=== PATIENT | female | born 1955 | race Caucasian/White ===

== ENCOUNTER → 2017-09-05 | Outpatient (CLI) | payer BC | END | disposition home or self-care (01) | LOC: SLPLAB 18:38 | DX: G47.33 Obstructive sleep apnea (adult) (pediatric) (principal) | CPT/HCPCS: 95810 ==

== ENCOUNTER → 2017-10-24 | Outpatient (CLI) | payer BC | END | disposition home or self-care (01) | LOC: RT 08:00 | DX: G47.33 Obstructive sleep apnea (adult) (pediatric) (principal) | CPT/HCPCS: G0399 ==

== ENCOUNTER 2018-03-03 22:20 | Emergency (ER) | payer BC ==
[2018-03-03 23:05] LABS: BILIRUBIN,URINE NEGATIVE (NEG); CLARITY,URINE CLEAR; COLOR,URINE YELLOW; GLUCOSE,URINE NEGATIVE (NEG); NITRITE,URINE NEGATIVE (NEG); PROTEIN,URINE NEGATIVE (NEG-TRACE); UROBILINOGEN,URINE 0.2 mg/dL (0.2 mg/dL)
[2018-03-03 23:10] LABS: BACTERIA,URINE 0 /HPF (0-FEW); RBC,URINE 0 /HPF (0-2); SQUAMOUS EPITHELIAL CELL,UR FEW /LPF; WBC,URINE 0 /HPF (0-4)
[2018-03-03 23:17] LABS: ADD MAN DIFF? NO
[2018-03-03 23:21] LABS: BASO # 0.1 x10^3/uL (0.0-0.2); BASO % 1 % (0-3); EOS # 0.5 x10^3/uL (0.0-0.7); EOS % 6 % (0-3); HEMATOCRIT 39.8 % (36.0-47.0); HEMOGLOBIN 13.8 g/dL (12.0-15.5); LYMPH # 2.8 x10^3/uL (1.0-4.8); LYMPH % 35 % (24-48); MEAN CORPUSCULAR HEMOGLOBIN 32 pg (25-35); MEAN CORPUSCULAR HGB CONC 35 g/dL (31-37); MEAN CORPUSCULAR VOLUME 92 fL (79-100); MONO # 0.7 x10^3/uL (0.0-1.1); MONO % 9 % (0-9); NEUT # 3.9 x10^3uL (1.8-7.7); NEUT % 49 % (31-73); PLATELET COUNT 283 x10^3/uL (140-400); RED BLOOD COUNT 4.33 x10^6/uL (3.50-5.40); RED CELL DISTRIBUTION WIDTH 13.7 % (11.5-14.5); WHITE BLOOD COUNT 8.1 x10^3/uL (4.0-11.0)
[2018-03-03 23:27] LABS: ANION GAP 9 (6-14); BLOOD UREA NITROGEN 10 mg/dL (7-20); BUN/CREATININE RATIO 11 (6-20); CALCIUM 9.1 mg/dL (8.5-10.1); CARBON DIOXIDE 25 mmol/L (21-32); CHLORIDE 108 mmol/L (98-107); CREATININE 0.9 mg/dL (0.6-1.0); GLUCOSE 100 mg/dL (70-99); POTASSIUM 3.5 mmol/L (3.5-5.1); SODIUM 142 mmol/L (136-145)
[2018-03-03 23:32] LABS: ALBUMIN 3.7 g/dL (3.4-5.0); ALK PHOS 119 U/L (46-116); ALT (SGPT) 22 U/L (14-59); AST (SGOT) 20 U/L (15-37); MAGNESIUM 2.1 mg/dL (1.8-2.4); TOTAL BILIRUBIN 0.3 mg/dL (0.2-1.0); TOTAL PROTEIN 7.3 g/dL (6.4-8.2)
[2018-03-03 23:45] LABS: THYROID STIM HORMONE (TSH) 0.124 uIU/mL (0.358-3.74)
== END 2018-03-04 00:54 | disposition home or self-care (01) ==
LOC: ER 03-04 00:54
DX: J32.9 Chronic sinusitis, unspecified (principal); R42 Dizziness and giddiness; J44.9 Chronic obstructive pulmonary disease, unspecified; I10 Essential (primary) hypertension; F32.9 Major depressive disorder, single episode, unspecified; F41.9 Anxiety disorder, unspecified; Z88.5 Allergy status to narcotic agent
CPT/HCPCS: 36415; 70450; 80053; 81001; 83735; 84443; 85025; 99285-25

== ENCOUNTER 2018-12-08 12:48 | Emergency (ER) | payer BC ==
[~2018-12-08] VITALS: Ht 157.5 cm; Wt 68.0 kg
[~2018-12-08 12:48] MED LIST: ALPR0.5T6 PO; AMLO10TA8 PO; AMOX500C PO; ATOR20TA58 PO; BUPR300T4 PO; CITA20TA6 PO; HYDR-3164 PO; HYDR12.58 PO; PANT40TA5 PO; PRAM0.255 PO
[2018-12-08 13:37] LABS: BASO # 0.1 x10^3/uL (0.0-0.2); BASO % 1 % (0-3); EOS # 0.4 x10^3/uL (0.0-0.7); EOS % 5 % (0-3); HEMATOCRIT 44.4 % (36.0-47.0); HEMOGLOBIN 14.6 g/dL (12.0-15.5); LYMPH # 2.8 x10^3/uL (1.0-4.8); LYMPH % 31 % (24-48); MEAN CORPUSCULAR HEMOGLOBIN 29 pg (25-35); MEAN CORPUSCULAR HGB CONC 33 g/dL (31-37); MEAN CORPUSCULAR VOLUME 89 fL (79-100); MONO # 0.8 x10^3/uL (0.0-1.1); MONO % 9 % (0-9); NEUT # 4.9 x10^3uL (1.8-7.7); NEUT % 54 % (31-73); PLATELET COUNT 321 x10^3/uL (140-400); RED BLOOD COUNT 4.97 x10^6/uL (3.50-5.40); RED CELL DISTRIBUTION WIDTH 14.1 % (11.5-14.5)
[2018-12-08 13:39] LABS: BILIRUBIN,URINE NEGATIVE (NEG); CLARITY,URINE CLEAR; COLOR,URINE YELLOW; NITRITE,URINE NEGATIVE (NEG); PH,URINE 6.5; PROTEIN,URINE NEGATIVE (NEG-TRACE); UROBILINOGEN,URINE 0.2 mg/dL (0.2 mg/dL)
--- NOTE | 2018-12-08 13:45 | RAD ---
CT brain without contrast. HISTORY: Dizzy for months CT scan of the brain was compared with an old study from February 2018. There is no intracranial hemorrhage or subdural hematoma. Ventricles are normal in size. There is no mass or shift of the midline. An acute CVA is not identified. Sinuses are clear. There is mucosal thickening in the left frontal sinus which is chronic also noted on the old CT. There is no mass or shift of the midline. IMPRESSION: 1. Chronic left frontal sinusitis. 2. No intracranial hemorrhage or mass or other acute finding. Electronically signed by: Tarun Nettles MD (12/08/2018 1:42 PM) [facility]
[2018-12-08 13:47] LABS: CALCIUM 8.4 mg/dL (8.5-10.1); CREATININE 0.8 mg/dL (0.6-1.0); GFR 72.2; POTASSIUM 3.9 mmol/L (3.5-5.1)
[2018-12-08 13:52] LABS: ALBUMIN 3.8 g/dL (3.4-5.0); TOTAL BILIRUBIN 0.5 mg/dL (0.2-1.0); TOTAL PROTEIN 7.8 g/dL (6.4-8.2)
[2018-12-08 13:53] LABS: SQUAMOUS EPITHELIAL CELL,UR MANY /LPF
[2018-12-08 13:54] LABS: BACTERIA,URINE 0 /HPF (0-FEW)
[2018-12-08 14:07] VITALS: BP 138/67
[2018-12-08] MEDS ORDERED: SULF1TAB24 PO (14:08)
--- NOTE | 2018-12-08 14:09 | PHYS DOC ---
Past Medical History Past Medical History: Anxiety, COPD, Depression, Hypertension Past Surgical History: Hysterectomy, Other Additional Past Surgical Histo: Pituitary removal Alcohol Use: Rarely Drug Use: None Adult General Chief Complaint Chief Complaint: DIZZY/LIGHT HEADED HPI HPI Patient is a 63 year old female who presents with dizziness that has been ongoing for several weeks. She felt today like she might pass out. She denies vision changes or headaches. She has an appointment to see her primary care provider on Sunday but felt like she needed to be seen before then. She has not had loss of consciousness and denies any recent injuries. Review of Systems Review of Systems Constitutional: Denies fever or chills [] Eyes: Denies change in visual acuity, redness, or eye pain [] HENT: Denies nasal congestion or sore throat [] Respiratory: Denies cough or shortness of breath [] Cardiovascular: No additional information not addressed in HPI [] GI: Denies abdominal pain, nausea, vomiting, bloody stools or diarrhea [] : Denies dysuria or hematuria [] Musculoskeletal: Denies back pain or joint pain [] Integument: Denies rash or skin lesions [] Neurologic: See history of present illness Endocrine: Denies polyuria or polydipsia [] All other systems were reviewed and found to be within normal limits, except as documented in this note. Allergies Allergies Allergies Coded Allergies Type Severity Reaction Last Updated Verified diphenhydramine Allergy Severe SOB 12/13/17 Yes Physical Exam Physical Exam Constitutional: Well developed, well nourished, no acute distress, non-toxic appearance. [] HENT: Normocephalic, atraumatic, bilateral tympanic membranes normal, oropharynx moist, no oral exudates, nose normal. [] Eyes: PERRLA, EOMI, conjunctiva normal, no discharge. [] Neck: Normal range of motion, no tenderness, supple, no stridor. [] Cardiovascular:Heart rate regular rhythm, no murmur [] Lungs & Thorax: Bilateral breath sounds clear to auscultation [] Abdomen: Bowel sounds normal, soft, no tenderness, no masses, no pulsatile masses. [] Skin: Warm, dry, no erythema, no rash. [] Back: No tenderness, no CVA tenderness. [] Extremities: No tenderness, no cyanosis, no clubbing, ROM intact, no edema. [] Neurologic: Alert and oriented X 3, normal motor function, normal sensory function, no focal deficits noted, cranial nerves II through XII are grossly intact. [] Psychologic: Affect normal, judgement normal, mood normal. [] Current Patient Data Vital Signs Vital Signs Date Time Temp Pulse Resp B/P (MAP) Pulse Ox O2 Delivery O2 Flow Rate FiO2 12/08/18 14:07 90 18 98 12/08/18 12:48 98.3 133/69 (90) Room Air 98.3 Lab Values Laboratory Tests Test 12/08/18 12:56 12/08/18 13:20 Urine Collection Type Unknown Urine Color Yellow Urine Clarity Clear Urine pH 6.5 Urine Specific [place] 1.015 Urine Protein Negative mg/dL (NEG-TRACE) Urine Glucose (UA) Negative mg/dL (NEG) Urine Ketones (Stick) Negative mg/dL (NEG) Urine Blood Negative (NEG) Urine Nitrite Negative (NEG) Urine Bilirubin Negative (NEG) Urine Urobilinogen Dipstick 0.2 mg/dL (0.2 mg/dL) Urine Leukocyte Esterase Trace (NEG) Urine RBC 3-5 /HPF (0-2) Urine WBC 1-4 /HPF (0-4) Urine Squamous Epithelial Cells Many /LPF Urine Transitional Epithelial Cells Few /LPF Urine Bacteria 0 /HPF (0-FEW) Urine Mucus Slight /LPF White Blood Count 9.0 x10^3/uL (4.0-11.0) Red Blood Count 4.97 x10^6/uL (3.50-5.40) Hemoglobin 14.6 g/dL (12.0-15.5) Hematocrit 44.4 % (36.0-47.0) Mean Corpuscular Volume 89 fL (79-100) Mean Corpuscular Hemoglobin 29 pg (25-35) Mean Corpuscular Hemoglobin Concent 33 g/dL (31-37) Red Cell Distribution Width 14.1 % (11.5-14.5) Platelet Count 321 x10^3/uL (140-400) Neutrophils (%) (Auto) 54 % (31-73) Lymphocytes (%) (Auto) 31 % (24-48) Monocytes (%) (Auto) 9 % (0-9) Eosinophils (%) (Auto) 5 % (0-3) H Basophils (%) (Auto) 1 % (0-3) Neutrophils # (Auto) 4.9 x10^3uL (1.8-7.7) Lymphocytes # (Auto) 2.8 x10^3/uL (1.0-4.8) Monocytes # (Auto) 0.8 x10^3/uL (0.0-1.1) Eosinophils # (Auto) 0.4 x10^3/uL (0.0-0.7) Basophils # (Auto) 0.1 x10^3/uL (0.0-0.2) Sodium Level 140 mmol/L (136-145) Potassium Level 3.9 mmol/L (3.5-5.1) Chloride Level 103 mmol/L (98-107) Carbon Dioxide Level 27 mmol/L (21-32) Anion Gap 10 (6-14) Blood Urea Nitrogen 11 mg/dL (7-20) Creatinine 0.8 mg/dL (0.6-1.0) Estimated GFR (Cockcroft-Gault) 72.2 BUN/Creatinine Ratio 14 (6-20) Glucose Level 75 mg/dL (70-99) Calcium Level 8.4 mg/dL (8.5-10.1) L Magnesium Level 2.4 mg/dL (1.8-2.4) Total Bilirubin 0.5 mg/dL (0.2-1.0) Aspartate Amino Transferase (AST) 21 U/L (15-37) Alanine Aminotransferase (ALT) 20 U/L (14-59) Alkaline Phosphatase 136 U/L (46-116) H Total Protein 7.8 g/dL (6.4-8.2) Albumin 3.8 g/dL (3.4-5.0) Albumin/Globulin Ratio 1.0 (1.0-1.7) Laboratory Tests 12/08/18 13:20 Laboratory Tests 12/08/18 13:20 EKG EKG [] Radiology/Procedures Radiology/Procedures []PATIENT: ELBERT PEARLUNT: [id number]#: [id number] : 1955 LOCATION: ER AGE: 63 SEX: F EXAM STATUS: PRE ER ORD. PHYSICIAN: HARRISON CUNHA APRN REASON: dizzy PROCEDURE: CT HEAD WO CONTRAST CT brain without contrast. HISTORY: Dizzy for months CT scan of the brain was compared with an old study from February 2018. There is no intracranial hemorrhage or subdural hematoma. Ventricles are normal in size. There is no mass or shift of the midline. An acute CVA is not identified. Sinuses are clear. There is mucosal thickening in the left frontal sinus which is chronic also noted on the old CT. There is no mass or shift of the midline. IMPRESSION: 1. Chronic left frontal sinusitis. 2. No intracranial hemorrhage or mass or other acute finding. Electronically signed by: Tarun Nettles MD (12/08/2018 1:42 PM) [facility] DICTATED and SIGNED BY: TARUN NETTLES MD DATE: 12/08/18 3519 Course & Med Decision Making Course & Med Decision Making Pertinent Labs and Imaging studies reviewed. (See chart for details) [] Dragon Disclaimer Dragon Disclaimer This electronic medical record was generated, in whole or in part, using a voice recognition dictation system. Departure Departure Impression: Primary Impression: Sinusitis Additional Impression: UTI (urinary tract infection) Disposition: 01 HOME, SELF-CARE Condition: STABLE Referrals: SEBASTIEN BRADY MD (PCP) Patient Instructions: Sinusitis, Urinary Tract Infection Additional Instructions: Take the antibiotic as directed. Increase fluids and rest. Follow-up with your primary care provider for urine recheck in one week. You may use over-the- counter Mucinex to help with your sinus congestion. If worsening return to the emergency department. Scripts Sulfamethoxazole/Trimethoprim (BACTRIM DS TABLET) 1 Each Tablet 1 TAB PO BID for uti, sinusitis, #20 TAB Prov: HARRISON CUNHA APRN 12/08/18 Problem Qualifiers HARRISON CUNHA APRN Dec 08, 2018 14:09
--- NOTE | 2018-12-08 16:01 | EKG ---
[facility] [address] [place] [address] Test Date: 2018-12-08 Test Time: 13:01:06 Pat Name: NATHANIEL PEARL Department: Room: Gender: F [employer]ing: : 1955 Requested By: HARRISON CUNHA Order Number: [id number] Reading MD: Measurements Intervals [place] Rate: 85 P: 122 IN: 126 QRS: 135 QRSD: 76 T: 138 QT: 372 QTc: 448 Interpretive Statements SUPRAVENTRICULAR RHYTHM LEFT ATRIAL ABNORMALITY ABNORMAL RIGHT AXIS DEVIATION QRS(T) CONTOUR ABNORMALITY CONSIDER ANTEROSEPTAL MYOCARDIAL DAMAGE CONSIDER HIGH LATERAL INFARCT ABNORMAL ECG RI6.01 Unconfirmed report No previous ECG available for comparison
== END 2018-12-08 14:29 | disposition home or self-care (01) ==
LOC: ER 12:48
DX: N39.0 Urinary tract infection, site not specified (principal); J32.1 Chronic frontal sinusitis; R42 Dizziness and giddiness; I10 Essential (primary) hypertension; J44.9 Chronic obstructive pulmonary disease, unspecified; Z88.5 Allergy status to narcotic agent
CPT/HCPCS: 36415; 70450; 80053; 81001; 83735; 85025; 87086; 93005; 99285

== ENCOUNTER 2018-12-31 12:08 | Emergency (ER) | payer BC ==
[~2018-12-31] VITALS: Ht 154.9 cm; Wt 72.6 kg
[~2018-12-31 12:08] MED LIST changes: +SULF1TAB24 PO
[2018-12-31 13:29] LABS: BASO # 0.1 x10^3/uL (0.0-0.2); BASO % 1 % (0-3); EOS # 0.4 x10^3/uL (0.0-0.7); EOS % 5 % (0-3); HEMATOCRIT 42.1 % (36.0-47.0); HEMOGLOBIN 14.3 g/dL (12.0-15.5); LYMPH # 2.3 x10^3/uL (1.0-4.8); LYMPH % 29 % (24-48); MEAN CORPUSCULAR HEMOGLOBIN 30 pg (25-35); MEAN CORPUSCULAR HGB CONC 34 g/dL (31-37); MEAN CORPUSCULAR VOLUME 89 fL (79-100); MONO # 0.7 x10^3/uL (0.0-1.1); MONO % 8 % (0-9); NEUT # 4.4 x10^3uL (1.8-7.7); NEUT % 57 % (31-73); PLATELET COUNT 277 x10^3/uL (140-400); RED BLOOD COUNT 4.75 x10^6/uL (3.50-5.40); RED CELL DISTRIBUTION WIDTH 14.3 % (11.5-14.5); WHITE BLOOD COUNT 7.8 x10^3/uL (4.0-11.0)
[2018-12-31 13:30] VITALS: BP 116/76
[2018-12-31 13:30] LABS: CALCIUM 9.2 mg/dL (8.5-10.1); CREATININE 0.9 mg/dL (0.6-1.0); POTASSIUM 3.6 mmol/L (3.5-5.1)
[2018-12-31 13:36] LABS: ALBUMIN 3.8 g/dL (3.4-5.0); ALBUMIN/GLOBULIN RATIO 1.2 (1.0-1.7); MAGNESIUM 2.2 mg/dL (1.8-2.4); TOTAL BILIRUBIN 0.3 mg/dL (0.2-1.0)
--- NOTE | 2018-12-31 13:41 | EKG ---
[facility] [address] [place] [address] Test Date: 2018-12-31 Test Time: 12:15:56 Pat Name: NATHANIEL PEARL Department: Room: Gender: F Laserist: : 1955 Requested By: ARIANNA VASQUEZ Order Number: [id number] Reading MD: Damien Stout MD Measurements Intervals [place] Rate: 73 P: 56 DC: 136 QRS: 47 QRSD: 78 T: 39 QT: 412 QTc: 458 Interpretive Statements SINUS RHYTHM NON-SPECIFIC ST/T CHANGES Electronically Signed On 01-27-2019 8:14:15 CDT by Damien Stout MD
--- NOTE | 2018-12-31 13:47 | RAD ---
EXAM: PA and Lateral Views of the Chest DATE: 12/31/2018 1:03 PM INDICATION: Chest pain COMPARISON: 09/11/2014 FINDINGS: The heart is not enlarged. Mediastinal and hilar contours are normal. No focal parenchymal airspace opacity. No pleural effusion or pneumothorax. IMPRESSION: 1. No radiographic evidence for acute cardiopulmonary process. Electronically signed by: Garfield Bethea MD (12/31/2018 1:44 PM) [id number]
--- NOTE | 2018-12-31 14:20 | PHYS DOC ---
Past Medical History Past Medical History: Anxiety, COPD, Depression, GERD, Hypertension Past Surgical History: Hysterectomy, Other Additional Past Surgical Histo: Pituitary removal Additional Information: 1-2 cigarettes daily Alcohol Use: Occasionally Drug Use: Marijuana Adult General Chief Complaint Chief Complaint: CHEST PAIN [facility] HPI Patient is a 63 year old female who is in by EMS because of chest pain. Patient states she didn't take her psychiatric and blood pressure medication this morning and while shopping at [employer] felt sudden onset of substernal sharp and intravenous pain with radiation to her jaw and face and associated with shortness of breath, palpitation, dizziness and near syncope. Patient complaining of numbness of her face and hands at the same time. Patient denies nausea, her and chills, cough and congestion, neck pain, history of DVT and PE. Patient rated her pain 8/10 and states the pain lasts about 15 minutes and resolve after had 324 mg of aspirin given by EMS. Patient states she had the same pain before with diagnose of anxiety. Patient had history of hypertension and smoking without other cardiac risk factors. Review of Systems Review of Systems Constitutional: Denies fever or chills [] Eyes: Denies change in visual acuity, redness, or eye pain [] HENT: Denies nasal congestion or sore throat [] Respiratory: Denies cough, report shortness of breath [] Cardiovascular: No additional information not addressed in HPI [] GI: Denies abdominal pain, nausea, vomiting, bloody stools or diarrhea [] : Denies dysuria or hematuria [] Musculoskeletal: Denies back pain or joint pain [] Integument: Denies rash or skin lesions [] Neurologic: Denies headache, focal weakness or sensory changes [] Endocrine: Denies polyuria or polydipsia [] All other systems were reviewed and found to be within normal limits, except as documented in this note. Allergies Allergies Allergies Coded Allergies Type Severity Reaction Last Updated Verified diphenhydramine Allergy Severe SOB 12/13/17 Yes Physical Exam Physical Exam Constitutional: Well developed, well nourished, no acute distress, non-toxic appearance. [] HENT: Normocephalic, atraumatic Eyes: PERRLA, EOMI, conjunctiva normal, no discharge. [] Neck: Normal range of motion, no tenderness, supple, no stridor. [] Cardiovascular:Heart rate regular rhythm, no murmur [] Lungs & Thorax: Bilateral breath sounds clear to auscultation [] Abdomen: Bowel sounds normal, soft, no tenderness, no masses, no pulsatile masses. [] Skin: Warm, dry, no erythema, no rash. [] Back: No tenderness, no CVA tenderness. [] Extremities: No tenderness, no cyanosis, no clubbing, ROM intact, no edema. [] Neurologic: Alert and oriented X 3, normal motor function, normal sensory function, no focal deficits noted. [] Psychologic: Affect anxious, judgement normal, mood normal. [] Current Patient Data Vital Signs Vital Signs Date Time Temp Pulse Resp B/P (MAP) Pulse Ox O2 Delivery O2 Flow Rate FiO2 12/31/18 12:22 98.2 80 18 125/79 (94) 99 Room Air 98.2 Lab Values Laboratory Tests Test 12/31/18 12:40 White Blood Count 7.8 x10^3/uL (4.0-11.0) Red Blood Count 4.75 x10^6/uL (3.50-5.40) Hemoglobin 14.3 g/dL (12.0-15.5) Hematocrit 42.1 % (36.0-47.0) Mean Corpuscular Volume 89 fL (79-100) Mean Corpuscular Hemoglobin 30 pg (25-35) Mean Corpuscular Hemoglobin Concent 34 g/dL (31-37) Red Cell Distribution Width 14.3 % (11.5-14.5) Platelet Count 277 x10^3/uL (140-400) Neutrophils (%) (Auto) 57 % (31-73) Lymphocytes (%) (Auto) 29 % (24-48) Monocytes (%) (Auto) 8 % (0-9) Eosinophils (%) (Auto) 5 % (0-3) H Basophils (%) (Auto) 1 % (0-3) Neutrophils # (Auto) 4.4 x10^3uL (1.8-7.7) Lymphocytes # (Auto) 2.3 x10^3/uL (1.0-4.8) Monocytes # (Auto) 0.7 x10^3/uL (0.0-1.1) Eosinophils # (Auto) 0.4 x10^3/uL (0.0-0.7) Basophils # (Auto) 0.1 x10^3/uL (0.0-0.2) Sodium Level 140 mmol/L (136-145) Potassium Level 3.6 mmol/L (3.5-5.1) Chloride Level 104 mmol/L (98-107) Carbon Dioxide Level 26 mmol/L (21-32) Anion Gap 10 (6-14) Blood Urea Nitrogen 9 mg/dL (7-20) Creatinine 0.9 mg/dL (0.6-1.0) Estimated GFR (Cockcroft-Gault) 63.0 BUN/Creatinine Ratio 10 (6-20) Glucose Level 93 mg/dL (70-99) Calcium Level 9.2 mg/dL (8.5-10.1) Magnesium Level 2.2 mg/dL (1.8-2.4) Total Bilirubin 0.3 mg/dL (0.2-1.0) Aspartate Amino Transferase (AST) 21 U/L (15-37) Alanine Aminotransferase (ALT) 25 U/L (14-59) Alkaline Phosphatase 140 U/L (46-116) H Creatine Kinase 55 U/L (26-192) Troponin I Quantitative < 0.017 ng/mL (0.000-0.055) RW-Xel-I-Type Natriuretic Peptide 55 pg/mL (0-124) Total Protein 7.0 g/dL (6.4-8.2) Albumin 3.8 g/dL (3.4-5.0) Albumin/Globulin Ratio 1.2 (1.0-1.7) Lipase 604 U/L (73-393) H Laboratory Tests 12/31/18 12:40 Laboratory Tests 12/31/18 12:40 EKG EKG EKG interpreted by me. EKG at 1250 showed normal sinus rhythm at rate of 73, left atrial abnormality, poor R-wave progress in anteroseptal leads, no acute ST and T-wave abnormalities. Radiology/Procedures Radiology/Procedures [] Course & Med Decision Making Course & Med Decision Making Pertinent Labs and Imaging studies reviewed. (See chart for details) Evaluation of patient in ER showed 63-year-old female patient with history of anxiety brought in by EMS because of chest pain. Patient has chest pain in ER. EKG and labs and chest x-ray was unremarkable. Plan discharge patient home to diagnose of panic attack. Dragon Disclaimer Dragon Disclaimer This electronic medical record was generated, in whole or in part, using a voice recognition dictation system. Departure Departure Impression: Primary Impression: Panic attack Additional Impressions: Non-cardiac chest pain Tobacco abuse Tobacco abuse counseling Disposition: HOME, SELF-CARE (@1417) Condition: IMPROVED Referrals: SEBASTIEN BRADY MD (PCP) Patient Instructions: Anxiety and Panic Attacks, Chest Pain (Nonspecific), Smoking Cessation, Tips For Success Additional Instructions: Continue home medication Follow-up with your primary care physician in 3-5 days Return to ER if not getting better Problem Qualifiers ARIANNA VASQUEZ MD December 31, 2018 14:20
== END 2018-12-31 15:00 | disposition home or self-care (01) ==
LOC: ER 12:08
DX: R07.89 Other chest pain (principal); F41.0 Panic disorder [episodic paroxysmal anxiety]; R55 Syncope and collapse; F17.210 Nicotine dependence, cigarettes, uncomplicated; Z71.6 Tobacco abuse counseling; R06.02 Shortness of breath; R51 Headache; R68.84 Jaw pain; R00.2 Palpitations; I10 Essential (primary) hypertension; J44.9 Chronic obstructive pulmonary disease, unspecified; F31.9 Bipolar disorder, unspecified; K21.9 Gastro-esophageal reflux disease without esophagitis; Z88.5 Allergy status to narcotic agent
CPT/HCPCS: 36415; 71046; 80053; 82550; 83690; 83735; 83880; 84484; 85025; 93005; 99285-25

== ENCOUNTER 2019-07-20 13:54 | Emergency (ER) | payer BC, OTHER ==
[~2019-07-20] VITALS: Ht 154.9 cm; Wt 72.6 kg
[~2019-07-20 13:54] MED LIST changes: -PANT40TA5 PO; +PANT40TA77 PO
[2019-07-20 14:00] VITALS: BP 163/94
[2019-07-20] MEDS ORDERED: FLUORESCEIN OPHTH TEST STRIP. OS ONE (15:00)
[2019-07-20] MEDS ORDERED: TETRACAINE 0.5% OPHTH SOLUTION 4ML BOTTLE. OS ONE (15:00)
[2019-07-20] MEDS ORDERED: ERYT1OIN6 OP (15:16)
--- NOTE | 2019-07-20 15:16 | PHYS DOC ---
Past Medical History Past Medical History: Anxiety, Arthritis, COPD, Depression, GERD, High Ch olesterol, Hypertension (BONNIE MELENDREZ [employer]) Past Surgical History: Hysterectomy, Other Additional Past Surgical Histo: Pituitary removal (BONNIE MELENDREZ APRN) Alcohol Use: Occasionally Drug Use: Marijuana (BONNIE MELENDREZ APRN) Adult General Chief Complaint Chief Complaint: EYE PROBLEMS HPI HPI Patient is a 64 year old female who presents with states awoke 2 days ago with sclera redness and pain and photophobia. And thinks she might have scratched her eye got something in her eye. She denies any discharge from either states tearing. Patient rates her pain a 4 out of 10. (BONNIE MELENDREZ APRN) Review of Systems Review of Systems Eyes: Denies change in visual acuity. + redness, or +eye pain [] All other systems were reviewed and found to be within normal limits, except as documented in this note. (BONNIE MELENDREZ APRN) Current Medications Current Medications Current Medications Medications (Trade) Dose Ordered Sig/Kyle Start Time Stop Time Status Last Admin Dose Admin Fluorescein Sodium (Ful-Lorene) 1 strip 1X ONCE 07/20/19 15:00 07/20/19 15:01 DC 07/20/19 15:00 1 STRIP Tetracaine HCl (Tetracaine) 1 drop 1X ONCE 07/20/19 15:00 07/20/19 15:01 DC 07/20/19 15:00 1 DROP (SEBASTIEN LEY MD) Allergies Allergies Allergies Coded Allergies Type Severity Reaction Last Updated Verified diphenhydramine Allergy Severe SOB 12/13/17 Yes (SEBASTIEN LEY MD) Physical Exam Physical Exam Constitutional: Well developed, well nourished, no acute distress, non-toxic appearance. [] HENT: Normocephalic, atraumatic, bilateral external ears normal, oropharynx moist, no oral exudates, nose normal. [] Eyes: PERRLA, EOMI, conjunctiva red, watering, no discharge. [] Neck: Normal range of motion, no tenderness, supple, no stridor. [] Skin: Warm, dry, no erythema, no rash. [] Neurologic: Alert and oriented X 3, normal motor function, normal sensory function, no focal deficits noted. [] Psychologic: Affect normal, judgement normal, mood normal. [] (BONNIE MELENDREZ APRN) Current Patient Data Vital Signs Vital Signs Date Time Temp Pulse Resp B/P (MAP) Pulse Ox O2 Delivery O2 Flow Rate FiO2 07/20/19 14:00 98.6 98 14 163/94 (117) 98 Room Air 98.6 (SEBASTIEN LEY MD) EKG EKG [] (BONNIE MELENDREZ APRN) Radiology/Procedures Radiology/Procedures [] (BONNIE MELENDREZ APRN) Course & Med Decision Making Course & Med Decision Making Denies visual changes, headache, dizziness. Patient has sclera redness. Patient denies itching thigh. No discharge is seen. No swelling of the eye or the eyelid. Right eye 20/30, left eye 20/50, bilateral 20/25. Eye Exam w/ slit lamp: Visual Acuity: Visual Monge: Intact in all four quadrants bilaterally Lac ducts/glands: No swelling Lids w/ evertion: Normal, no foreign body Conj/[place]: Red, Positive Fluorescein/Whit's, Corneal Abrasion at 5'o clock on iris Anterior Chamber: Clear Tonopen readings: Retina exam: No obvious abnormality [] (BONNIE MELENDREZ APRN) Course & Med Decision Making I spoke with the provider about this patient's care. The patient did NOT have a Whit's sign. (SEBASTIEN LEY MD) Dragon Disclaimer Dragon Disclaimer This electronic medical record was generated, in whole or in part, using a voice recognition dictation system. (BONNIE MELENDREZ APRN) Departure Departure Impression: Primary Impression: Corneal abrasion Disposition: HOME, SELF-CARE Condition: STABLE Referrals: SEBASTIEN BRADY MD (PCP) Patient Instructions: Eye - Corneal Abrasion Additional Instructions: FOLLOW UP WITH EYE DOCTOR SOON POSSIBLE. USE MEDICATION PRESCRIBED. Scripts Erythromycin Base (Erythromycin) 1 Gm Oint...g. 1 GM OP QID for 10 Days, #1 MISC Prov: BONNIE MELENDREZ APRN 07/20/19 Problem Qualifiers Primary Impression: Corneal abrasion Encounter type: initial encounter Laterality: left Qualified Codes: S05.02XA - Injury of conjunctiva and corneal abrasion without foreign body, left eye, initial encounter BONNIE MELENDREZ APRN Jul 20, 2019 15:16 SEBASTIEN LEY MD Jul 22, 2019 14:10
== END 2019-07-20 15:40 | disposition home or self-care (01) ==
LOC: ER 13:54
DX: S05.02XA Injury of conjunctiva and corneal abrasion without foreign body, left eye, initial encounter (principal); M19.90 Unspecified osteoarthritis, unspecified site; J44.9 Chronic obstructive pulmonary disease, unspecified; K21.9 Gastro-esophageal reflux disease without esophagitis; Z88.8 Allergy status to other drugs, medicaments and biological substances; W50.4XXA Accidental scratch by another person, initial encounter; Y93.89 Activity, other specified; Y92.89 Other specified places as the place of occurrence of the external cause; Y99.8 Other external cause status
CPT/HCPCS: 99283

== ENCOUNTER → 2019-12-22 | Outpatient (CLI) | payer BC, OTHER ==
[~2019-12-22] MED LIST changes: -BUPR300T4 PO; +BUPR300T92 PO; +ERYT1OIN6 OP
--- NOTE | 2019-12-22 13:49 | RAD ---
RIGHT LEG VENOUS DOPPLER STUDY: Clinical indications: Right leg swelling and pain. Findings: Duplex sonography (including moralez scale evaluation and color flow and waveform spectral analysis) of the proximal aspect of the greater saphenous vein and proximal aspect of the profunda femoral vein and the entire length of the common femoral and superficial femoral and popliteal veins and the tibioperoneal trunk and the proximal aspect of the posterior tibial and peroneal veins of the right leg was performed. Normal compressibility, augmentation of color Doppler flow after calf compression, and respiratory variation of Doppler flow is seen. Thus, there are no sonographic findings of deep venous thrombosis within these veins. Impression: There are no sonographic findings of deep venous thrombosis within the veins discussed above of the right lower extremity. Electronically signed by: Sung Castaneda MD (12/22/2019 1:46 PM) [id number]
== END | disposition home or self-care (01) ==
LOC: US 12:18
PROVIDERS: ATTEND Physician Assistant Medical
DX: M79.89 Other specified soft tissue disorders (principal); R09.89 Other specified symptoms and signs involving the circulatory and respiratory systems
CPT/HCPCS: 93971

== ENCOUNTER 2020-03-21 09:46 | Emergency (ER) | payer BC ==
[~2020-03-21] VITALS: Ht 154.9 cm; Wt 77.0 kg
--- NOTE | 2020-03-21 10:29 | PHYS DOC ---
Past Medical History Past Medical History: Anxiety, Arthritis, COPD, Depression, GERD, High Ch olesterol, Hypertension Past Surgical History: Hysterectomy, Other Additional Past Surgical Histo: Pituitary removal Smoking Status: Current Every Day Smoker Alcohol Use: Occasionally Drug Use: Marijuana General Adult EDM: Chief Complaint: DIZZY/LIGHT HEADED HPI: HPI: Patient is a 65 year old female who was brought here by EMS from home due to dizziness and lightheaded when she woke up this morning. Patient said the symptom got worse with upright position or head movement. Patient denied headache, no blurred vision, no upper respiratory infection. Patient feels nauseous, but no vomiting. Patient denies any chest pain, no abdominal pain, no trouble breathing, no cough or fever. Patient was on Xanax for anxiety for a long time, about 4 weeks ago her doctor stopped her Xanax and put her on BuSpar. Patient said ever since she had not been the same. Review of Systems: Review of Systems: Constitutional: Denies fever or chills. [] Eyes: Denies change in visual acuity. [] HENT: Denies nasal congestion or sore throat. [] Respiratory: Denies cough or shortness of breath. [] Cardiovascular: Denies chest pain or edema. [] GI: Denies abdominal pain, nausea, vomiting, bloody stools or diarrhea. [] : Denies dysuria. [] Musculoskeletal: Denies back pain or joint pain. [] Integument: Denies rash. [] Neurologic: Positive for dizziness, no headache, no slurred speech. Endocrine: Denies polyuria or polydipsia. [] Lymphatic: Denies swollen glands. [] Psychiatric: Denies depression or anxiety. [] Heart Score: Risk Factors: Risk Factors: DM, Current or recent (<one month) smoker, HTN, HLP, family history of CAD, obesity. Risk Scores: Score 0 - 3: 2.5% MACE over next 6 weeks - Discharge Home Score 4 - 6: 20.3% MACE over next 6 weeks - Admit for Clinical Observation Score 7 - 10: 72.7% MACE over next 6 weeks - Early Invasive Strategies Allergies: Allergies: Allergies Coded Allergies Type Severity Reaction Last Updated Verified diphenhydramine Allergy Severe SOB 12/13/17 Yes Physical Exam: PE: Constitutional: Well developed, well nourished, no acute distress, non-toxic appearance. [] HENT: Normocephalic, atraumatic, bilateral external ears normal, oropharynx moist, no oral exudates, nose normal. [] Eyes: PERRLA, EOMI, conjunctiva normal, no discharge. [] Neck: Normal range of motion, no tenderness, supple, no stridor. [] Cardiovascular:Heart rate regular rhythm, no murmur [] Lungs & Thorax: Bilateral breath sounds clear to auscultation [] Abdomen: Bowel sounds normal, soft, no tenderness, no masses, no pulsatile masses. [] Skin: Warm, dry, no erythema, no rash. [] Back: No tenderness, no CVA tenderness. [] Extremities: No tenderness, no cyanosis, no clubbing, ROM intact, no edema. [] Neurologic: Alert and oriented X 3, normal motor function, normal sensory functi on, no focal deficits noted. [] Psychologic: Affect normal, judgement normal, mood normal. [] Current Patient Data: Vital Signs: Vital Signs Date Time Temp Pulse Resp B/P (MAP) Pulse Ox O2 Delivery O2 Flow Rate FiO2 03/21/20 10:00 98.9 75 16 117/71 (86 98 Room Air 98.9 EKG: EKG: EKG was done at 1025, heart rate of 67 bpm, sinus rhythm, no ST segment elevation. Radiology/Procedures: Radiology/Procedures: [facility] [address] [place] [address] IMAGING REPORT Signed PATIENT: NATHANIEL PEARL ACCOUNT: [id number] : 1955 LOCATION: ER AGE: 65 SEX: F EXAM STATUS: PRE ER ORD. PHYSICIAN: FLETCHER PEOPLES DO REASON: dizziness PROCEDURE: CT HEAD WO CONTRAST EXAM: Head CT without contrast. HISTORY: Dizziness. TECHNIQUE: Computed tomographic images of the head were obtained without contrast. *One or more of the following individualized dose reduction techniques were utilized for this examination: 1. Automated exposure control. 2. Adjustment of the mA and/or kV according to patient size. 3. Use of iterative reconstruction technique. COMPARISON: 12/08/2018. FINDINGS: There is no acute or subacute extra-axial or intraparenchymal hemorrhage. There is no mass effect or midline shift. There is no hydrocephalus. There are areas of decreased attenuation within the cerebral white matter, nonspecific and likely related to chronic small vessel disease. There is paranasal sinus mucosal thickening. The orbits and mastoid air cells are unremarkable. There is no suspicious osseous lesion. IMPRESSION: No acute intracranial findings. Electronically signed by: Krystal Graham MD (03/21/2020 11:01 AM) [id number] DICTATED and SIGNED BY: KRYSTAL GRAHAM MD DATE: 03/21/20 1101 Course & Med Decision Making: Course & Med Decision Making Pertinent Labs and Imaging studies reviewed. (See chart for details) Patient is a 65-year-old female who was evaluated in the ER due to dizziness. Patient is on BuSpar at home. She started having the symptoms ever since she started taking that medication. But the symptoms become more severe this morning. Patient was given meclizine for dizziness, she feels much better. Patient was able to get up and walk without any problem. Patient will be discharged home, she was instructed to see her family doctor to reevaluate her medication Dragon Disclaimer: Dragon Disclaimer: This electronic medical record was generated, in whole or in part, using a voice recognition dictation system. Departure Departure Impression: Primary Impression: Dizziness Disposition: 01 HOME, SELF-CARE Condition: STABLE Referrals: SEBASTIEN BRADY MD (PCP) please follow up with your doctor next week for reevaluation. Patient Instructions: Dizziness Additional Instructions: These follow-up with your family doctor for reevaluation and further evaluation. If you continue to have symptoms please come back to the ER for further evaluation. Scripts Meclizine Hcl (MECLIZINE HCL) 25 Mg Tablet 1 TAB PO TID PRN for dizziness, #30 TAB Prov: FLETCHER PEOPLES DO 03/21/20 Justicifation of Admission Dx: Justifications for Admission: Justification of Admission Dx: N/A FLETCHER PEOPLES DO Mar 21, 2020 10:29
[2020-03-21] MEDS ORDERED: MECLIZINE HCL 12.5 MG TABLET. PO ONE (10:30)
[2020-03-21] MEDS ORDERED: ONDANSETRON PF 4 MG/2 ML VIAL. IVP ONE (10:30)
[2020-03-21 10:37] LABS: BASO # 0.1 x10^3/uL (0.0-0.2); BASO % 1 % (0-3); EOS # 0.2 x10^3/uL (0.0-0.7); EOS % 4 % (0-3); HEMATOCRIT 39.9 % (36.0-47.0); HEMOGLOBIN 13.7 g/dL (12.0-15.5); LYMPH # 1.6 x10^3/uL (1.0-4.8); LYMPH % 26 % (24-48); MEAN CORPUSCULAR HEMOGLOBIN 31 pg (25-35); MEAN CORPUSCULAR HGB CONC 35 g/dL (31-37); MEAN CORPUSCULAR VOLUME 89 fL (79-100); MONO # 0.6 x10^3/uL (0.0-1.1); MONO % 9 % (0-9); NEUT # 3.7 x10^3/uL (1.8-7.7); NEUT % 61 % (31-73); PLATELET COUNT 267 x10^3/uL (140-400); RED CELL DISTRIBUTION WIDTH 14.7 % (11.5-14.5); WHITE BLOOD COUNT 6.1 x10^3/uL (4.0-11.0)
[2020-03-21 10:46] LABS: CALCIUM 8.7 mg/dL (8.5-10.1); CREATININE 0.9 mg/dL (0.6-1.0); GFR 62.6; POTASSIUM 3.5 mmol/L (3.5-5.1)
[2020-03-21 10:52] LABS: ALBUMIN 3.5 g/dL (3.4-5.0); ALBUMIN/GLOBULIN RATIO 1.1 (1.0-1.7); MAGNESIUM 2.2 mg/dL (1.8-2.4); TOTAL BILIRUBIN 0.6 mg/dL (0.2-1.0); TOTAL PROTEIN 6.8 g/dL (6.4-8.2)
--- NOTE | 2020-03-21 11:04 | RAD ---
EXAM: Head CT without contrast. HISTORY: Dizziness. TECHNIQUE: Computed tomographic images of the head were obtained without contrast. *One or more of the following individualized dose reduction techniques were utilized for this examination: 1. Automated exposure control. 2. Adjustment of the mA and/or kV according to patient size. 3. Use of iterative reconstruction technique. COMPARISON: 12/08/2018. FINDINGS: There is no acute or subacute extra-axial or intraparenchymal hemorrhage. There is no mass effect or midline shift. There is no hydrocephalus. There are areas of decreased attenuation within the cerebral white matter, nonspecific and likely related to chronic small vessel disease. There is paranasal sinus mucosal thickening. The orbits and mastoid air cells are unremarkable. There is no suspicious osseous lesion. IMPRESSION: No acute intracranial findings. Electronically signed by: Krystal Baker MD (03/21/2020 11:01 AM) [id number]
[2020-03-21 12:27] VITALS: BP 110/74
[2020-03-21] MEDS ORDERED: MECL-75 PO (12:47)
--- NOTE | 2020-03-23 03:12 | EKG ---
[facility] [address] [place] [address] Test Date: 2020-03-21 Test Time: 10:35:48 Pat Name: NATHANIEL PEARL Department: Room: Gender: F [employer]: : 1955 Requested By: FLETCHER PEOPLES Order Number: [id number] Reading MD: Measurements Intervals Mcleod Rate: 67 P: 47 NM: 128 QRS: 47 QRSD: 84 T: 16 QT: 416 QTc: 443 Interpretive Statements SINUS RHYTHM T ABNORMALITY IN ANTERIOR LEADS ABNORMAL ECG RI6.01 No previous ECG available for comparison
== END 2020-03-21 13:00 | disposition home or self-care (01) ==
LOC: ER 09:46
DX: R42 Dizziness and giddiness (principal); R11.0 Nausea; J44.9 Chronic obstructive pulmonary disease, unspecified; K21.9 Gastro-esophageal reflux disease without esophagitis; E78.00 Pure hypercholesterolemia, unspecified; I10 Essential (primary) hypertension; F17.200 Nicotine dependence, unspecified, uncomplicated; Z88.5 Allergy status to narcotic agent
CPT/HCPCS: 36415; 70450; 80053; 83735; 84484; 85025; 93005; 96374; 99285; J2405; J8597

== ENCOUNTER 2020-05-02 21:00 | Emergency (ER) | payer BC ==
[~2020-05-02] VITALS: Ht 154.9 cm; Wt 72.7 kg
[~2020-05-02 21:00] MED LIST changes: +MECL-75 PO
[2020-05-02 21:26] LABS: BASO # 0.1 x10^3/uL (0.0-0.2); BASO % 1 % (0-3); EOS # 0.3 x10^3/uL (0.0-0.7); EOS % 3 % (0-3); HEMATOCRIT 39.1 % (36.0-47.0); HEMOGLOBIN 13.5 g/dL (12.0-15.5); LYMPH # 2.7 x10^3/uL (1.0-4.8); LYMPH % 25 % (24-48); MEAN CORPUSCULAR HEMOGLOBIN 30 pg (25-35); MEAN CORPUSCULAR HGB CONC 34 g/dL (31-37); MEAN CORPUSCULAR VOLUME 88 fL (79-100); MONO # 1.1 x10^3/uL (0.0-1.1); MONO % 10 % (0-9); NEUT # 6.7 x10^3/uL (1.8-7.7); NEUT % 62 % (31-73); PLATELET COUNT 268 x10^3/uL (140-400); RED BLOOD COUNT 4.44 x10^6/uL (3.50-5.40); WHITE BLOOD COUNT 10.9 x10^3/uL (4.0-11.0)
[2020-05-02 21:32] LABS: CALCIUM 9.1 mg/dL (8.5-10.1); CREATININE 0.9 mg/dL (0.6-1.0); GFR 62.6; POTASSIUM 3.1 mmol/L (3.5-5.1)
[2020-05-02 21:38] LABS: ALBUMIN 3.3 g/dL (3.4-5.0); TOTAL BILIRUBIN 0.2 mg/dL (0.2-1.0); TOTAL PROTEIN 6.6 g/dL (6.4-8.2)
--- NOTE | 2020-05-02 21:44 | PHYS DOC ---
Past Medical History Past Medical History: Anxiety, Arthritis, COPD, Depression, GERD, High Cholesterol, Hypertension Past Surgical History: Hysterectomy, Other Additional Past Surgical Histo: Pituitary removal Smoking Status: Current Every Day Smoker Alcohol Use: None Drug Use: Marijuana General Adult EDM: Chief Complaint: FLANK PAIN HPI: HPI: Patient is a 65 year old female presents with a chief complaint of right lower quadrant abdominal pain. Patient states she has had pain for approximately 6 months on and off. Pain is become more frequent over the last month. Patient states tonight around 1800 hrs. pain returned and would not resolve. Patient states pain was a 6 out of 10 after hydrocodone. Patient states she has associated nausea but has not vomited. Patient denies any urinary symptoms. Despite pain ongoing for 6 months patient has not seen her primary care physician for evaluation. Patient has a past surgical history of total hysterectomy. She denies any urinary or vaginal symptoms. Review of Systems: Review of Systems: Constitutional: Denies fever or chills. [] Eyes: Denies change in visual acuity. [] HENT: Denies nasal congestion or sore throat. [] Respiratory: Denies cough or shortness of breath. [] Cardiovascular: Denies chest pain or edema. [] GI: Positive abdominal pain positive nausea no vomiting no diarrhea : Denies dysuria. [] Musculoskeletal: Denies back pain or joint pain. [] Integument: Denies rash. [] Neurologic: Denies headache, focal weakness or sensory changes. [] Endocrine: Denies polyuria or polydipsia. [] Lymphatic: Denies swollen glands. [] Psychiatric: Denies depression or anxiety. [] Heart Score: Risk Factors: Risk Factors: DM, Current or recent (<one month) smoker, HTN, HLP, family history of CAD, obesity. Risk Scores: Score 0 - 3: 2.5% MACE over next 6 weeks - Discharge Home Score 4 - 6: 20.3% MACE over next 6 weeks - Admit for Clinical Observation Score 7 - 10: 72.7% MACE over next 6 weeks - Early Invasive Strategies Allergies: Allergies: Allergies Coded Allergies Type Severity Reaction Last Updated Verified diphenhydramine Allergy Severe SOB 12/13/17 Yes Physical Exam: PE: Constitutional: Well developed, well nourished, no acute distress, non-toxic appearance. [] HENT: Normocephalic, atraumatic, bilateral external ears normal, oropharynx moist, no oral exudates, nose normal. [] Eyes: PERRLA, EOMI, conjunctiva normal, no discharge. [] Neck: Normal range of motion, no tenderness, supple, no stridor. [] Cardiovascular:Heart rate regular rhythm, no murmur [] Lungs & Thorax: Bilateral breath sounds clear to auscultation [] Abdomen: Domingo pain right lower quadrant tenderness to palpation no rebound no guarding Skin: Warm, dry, no erythema, no rash. [] Back: No tenderness, no CVA tenderness. [] Extremities: No tenderness, no cyanosis, no clubbing, ROM intact, no edema. [] Neurologic: Alert and oriented X 3, normal motor function, normal sensory function, no focal deficits noted. [] Psychologic: Affect normal, judgement normal, mood normal. [] Current Patient Data: Labs: Laboratory Tests Test 05/02/20 21:12 White Blood Count 10.9 x10^3/uL (4.0-11.0) Red Blood Count 4.44 x10^6/uL (3.50-5.40) Hemoglobin 13.5 g/dL (12.0-15.5) Hematocrit 39.1 % (36.0-47.0) Mean Corpuscular Volume 88 fL (79-100) Mean Corpuscular Hemoglobin 30 pg (25-35) Mean Corpuscular Hemoglobin Concent 34 g/dL (31-37) Red Cell Distribution Width 14.0 % (11.5-14.5) Platelet Count 268 x10^3/uL (140-400) Neutrophils (%) (Auto) 62 % (31-73) Lymphocytes (%) (Auto) 25 % (24-48) Monocytes (%) (Auto) 10 % (0-9) H Eosinophils (%) (Auto) 3 % (0-3) Basophils (%) (Auto) 1 % (0-3) Neutrophils # (Auto) 6.7 x10^3/uL (1.8-7.7) Lymphocytes # (Auto) 2.7 x10^3/uL (1.0-4.8) Monocytes # (Auto) 1.1 x10^3/uL (0.0-1.1) Eosinophils # (Auto) 0.3 x10^3/uL (0.0-0.7) Basophils # (Auto) 0.1 x10^3/uL (0.0-0.2) Sodium Level 139 mmol/L (136-145) Potassium Level 3.1 mmol/L (3.5-5.1) L Chloride Level 103 mmol/L (98-107) Carbon Dioxide Level 24 mmol/L (21-32) Anion Gap 12 (6-14) Blood Urea Nitrogen 13 mg/dL (7-20) Creatinine 0.9 mg/dL (0.6-1.0) Estimated GFR (Cockcroft-Gault) 62.6 BUN/Creatinine Ratio 14 (6-20) Glucose Level 122 mg/dL (70-99) H Calcium Level 9.1 mg/dL (8.5-10.1) Total Bilirubin 0.2 mg/dL (0.2-1.0) Aspartate Amino Transferase (AST) 19 U/L (15-37) Alanine Aminotransferase (ALT) 25 U/L (14-59) Alkaline Phosphatase 134 U/L (46-116) H Total Protein 6.6 g/dL (6.4-8.2) Albumin 3.3 g/dL (3.4-5.0) L Albumin/Globulin Ratio 1.0 (1.0-1.7) Laboratory Tests 05/02/20 21:12 Laboratory Tests 05/02/20 21:12 Vital Signs: Vital Signs Date Time Temp Pulse Resp B/P (MAP) Pulse Ox O2 Delivery O2 Flow Rate FiO2 05/02/20 21:11 98.2 85 18 103/69 (80) 98 Room Air 98.2 EKG: EKG: [] Radiology/Procedures: Radiology/Procedures: [] Impression: CT abdomen and pelvis without contrast 05/02/2020. Reason for exam: Flank pain. Helical noncontrast images were performed. Exposure: One or more of the following individualized dose reduction techniques were utilized for this examination: 1. Automated exposure control 2. Adjustment of the mA and/or kV according to patient size 3. Use of iterative reconstruction technique. FINDINGS: The lung bases are clear. There is a small hiatal hernia. The liver and spleen show no significant parenchymal abnormality. Evaluation of the solid organs is limited without IV contrast. The kidneys show no apparent mass or significant obstruction. Small calcifications are visible in the lower left kidney. The adrenal glands are not enlarged. The pancreas appears normal. No retroperitoneal or mesenteric adenopathy is seen. There is no apparent abdominal mass or inflammatory process. Images through the pelvis show no apparent dilatation of the distal ureters. There are calcifications near both ureteral path, but these are thought most likely phleboliths external to the ureter. No pelvic or inguinal adenopathy is seen. There is no apparent pelvic mass. There is some diverticulosis of the sigmoid colon. There is no clear-cut diverticulitis or other acute abnormality. IMPRESSION: There are left renal calculi. No ureteral stone is seen. Course & Med Decision Making: Course & Med Decision Making Pertinent Labs and Imaging studies reviewed. (See chart for details) []CT without acute abnormalities. UA consistent with UTI. Rx azo and macrobid utlram [place] Disclaimer: Minor Disclaimer: This electronic medical record was generated, in whole or in part, using a voice recognition dictation system. Departure Departure Impression: Primary Impression: Abdominal pain Additional Impression: UTI (urinary tract infection) Disposition: 01 HOME, SELF-CARE Condition: STABLE Referrals: NO PCP (PCP) Patient Instructions: Abdominal Pain, Urinary Tract Infection Scripts Tramadol Hcl (ULTRAM) 50 Mg Tablet 1 TAB PO PRN Q6HRS PRN for pain MDD 4 Tablet(s) for 7 Days, #14 TAB 0 Refills Prov: ZEYAD BECK I DO 05/02/20 Phenazopyridine Hcl (AZO STANDARD) 95 Mg Tablet 1 TAB PO TID for 3 Days, #9 TAB 0 Refills Prov: ZEYAD BCEK I DO 05/02/20 Nitrofurantoin Monohyd/M-Cryst (MACROBID 100 MG CAPSULE) 100 Mg Capsule 1 CAP PO BID for 5 Days, #10 CAP 0 Refills Prov: ZEYAD BECK I DO 05/02/20 Justicifation of Admission Dx: Justifications for Admission: Justification of Admission Dx: N/A ZEYAD BECK I DO May 02, 2020 21:44
[2020-05-02] MEDS ORDERED: KETOROLAC 30 MG/ML VIAL. IVP ONE (22:00)
--- NOTE | 2020-05-02 22:03 | RAD ---
CT abdomen and pelvis without contrast 05/02/2020. Reason for exam: Flank pain. Helical noncontrast images were performed. Exposure: One or more of the following individualized dose reduction techniques were utilized for this examination: 1. Automated exposure control 2. Adjustment of the mA and/or kV according to patient size 3. Use of iterative reconstruction technique. FINDINGS: The lung bases are clear. There is a small hiatal hernia. The liver and spleen show no significant parenchymal abnormality. Evaluation of the solid organs is limited without IV contrast. The kidneys show no apparent mass or significant obstruction. Small calcifications are visible in the lower left kidney. The adrenal glands are not enlarged. The pancreas appears normal. No retroperitoneal or mesenteric adenopathy is seen. There is no apparent abdominal mass or inflammatory process. Images through the pelvis show no apparent dilatation of the distal ureters. There are calcifications near both ureteral path, but these are thought most likely phleboliths external to the ureter. No pelvic or inguinal adenopathy is seen. There is no apparent pelvic mass. There is some diverticulosis of the sigmoid colon. There is no clear-cut diverticulitis or other acute abnormality. IMPRESSION: There are left renal calculi. No ureteral stone is seen. Electronically signed by: Domingo Levi Jr., MD (05/02/2020 10:00 PM) [facility]
[2020-05-02 22:25] LABS: BILIRUBIN,URINE NEGATIVE (NEG); CLARITY,URINE CLEAR; COLOR,URINE YELLOW; NITRITE,URINE NEGATIVE (NEG); PROTEIN,URINE NEGATIVE (NEG-TRACE); UROBILINOGEN,URINE 0.2 mg/dL (0.2 mg/dL)
[2020-05-02 22:31] LABS: SQUAMOUS EPITHELIAL CELL,UR MOD /LPF
[2020-05-02 22:32] LABS: BACTERIA,URINE FEW /HPF (0-FEW); RBC,URINE OCC /HPF (0-2)
[2020-05-02] MEDS ORDERED: TRAM-48 PO (22:39)
[2020-05-02] MEDS ORDERED: PHEN95TA27 PO (22:39)
[2020-05-02] MEDS ORDERED: NITR100C62 PO (22:39)
[2020-05-02 22:45] VITALS: BP 101/67
== END 2020-05-02 22:50 | disposition home or self-care (01) ==
LOC: ER 21:00
DX: N39.0 Urinary tract infection, site not specified (principal); J44.9 Chronic obstructive pulmonary disease, unspecified; K21.9 Gastro-esophageal reflux disease without esophagitis; E78.00 Pure hypercholesterolemia, unspecified; I10 Essential (primary) hypertension; F17.200 Nicotine dependence, unspecified, uncomplicated; Z90.710 Acquired absence of both cervix and uterus; Z88.5 Allergy status to narcotic agent
CPT/HCPCS: 36415; 74176; 80053; 81001; 85025; 87086; 96374; 99284; J1885

== ENCOUNTER 2020-05-09 20:38 | Observation (INO) | payer BC ==
[~2020-05-09] VITALS: Ht 157.5 cm; Wt 77.0 kg
[~2020-05-09 20:38] MED LIST changes: +NITR100C62 PO; +PHEN95TA27 PO; +TRAM-48 PO
[2020-05-09] MEDS ORDERED: IV NORMAL SALINE 1000ML BAG 1,000 ML IV ONE (21:00)
[2020-05-09 21:34] LABS: BASO # 0.1 x10^3/uL (0.0-0.2); BASO % 1 % (0-3); EOS # 0.4 x10^3/uL (0.0-0.7); EOS % 5 % (0-3); HEMATOCRIT 38.6 % (36.0-47.0); HEMOGLOBIN 12.9 g/dL (12.0-15.5); LYMPH # 2.3 x10^3/uL (1.0-4.8); LYMPH % 28 % (24-48); MEAN CORPUSCULAR HEMOGLOBIN 30 pg (25-35); MEAN CORPUSCULAR HGB CONC 33 g/dL (31-37); MEAN CORPUSCULAR VOLUME 90 fL (79-100); MONO # 0.7 x10^3/uL (0.0-1.1); MONO % 9 % (0-9); NEUT # 4.8 x10^3/uL (1.8-7.7); NEUT % 58 % (31-73); PLATELET COUNT 255 x10^3/uL (140-400); RED CELL DISTRIBUTION WIDTH 13.9 % (11.5-14.5); WHITE BLOOD COUNT 8.3 x10^3/uL (4.0-11.0)
[2020-05-09 21:41] LABS: AMPHETAMINE/METHAMPHETAMINE NEG (NEG); BARBITURATES NEG (NEG); BENZODIAZEPINES NEG (NEG); CANNABINOIDS NEG (NEG); COCAINE NEG (NEG); METHADONE NEG (NEG); OPIATES NEG (NEG); PHENCYCLIDINE NEG (NEG)
[2020-05-09 21:43] LABS: PROTHROMBIN TIME PATIENT 12.8 SEC (11.7-14.0)
[2020-05-09 21:45] LABS: CALCIUM 8.8 mg/dL (8.5-10.1); CREATININE 0.9 mg/dL (0.6-1.0); GFR 62.6; POTASSIUM 3.3 mmol/L (3.5-5.1)
[2020-05-09 21:48] LABS: ACETAMIN < 2 mcg/ml (10-30); ETHANOL < 10 mg/dL (0-10); SALIC 4.2 mg/dL (2.8-20.0)
[2020-05-09 21:51] LABS: ALBUMIN 3.2 g/dL (3.4-5.0); MAGNESIUM 2.4 mg/dL (1.8-2.4); TOTAL BILIRUBIN 0.3 mg/dL (0.2-1.0); TOTAL PROTEIN 6.5 g/dL (6.4-8.2)
--- NOTE | 2020-05-09 22:03 | PHYS DOC ---
Past Medical History Past Medical History: Anxiety, Arthritis, COPD, Depression, GERD, High Cholesterol, Hypertension Past Medical History Limited secondary to altered mental status Past Surgical History: Hysterectomy, Other Additional Past Surgical Histo: Pituitary removal Past Surgical History Limited secondary to altered mental status Smoking Status: Current Every Day Smoker Alcohol Use: None Drug Use: Marijuana Social History Limited secondary to altered mental status General Adult EDM: Chief Complaint: SUICDAL IDEATION HPI: HPI: 65 year old female presents via EMS with report of suicide attempt after intentional ingestion of patient's prescribed Risperidal. Reports she took 10- 30 tabs at approximately 1800 this evening. Reports she is unsure of the dosing. Reports she got into an argument with her daughter over not being able to see her granddaughter. History of present illness limited secondary to altered mental status. Review of Systems: Review of Systems: Constitutional: Denies fever or chills GI: Denies abdominal pain or vomiting Neurologic: Denies headache Review of systems limited secondary to altered mental status Heart Score: Risk Factors: Risk Factors: DM, Current or recent (<one month) smoker, HTN, HLP, family history of CAD, obesity. Risk Scores: Score 0 - 3: 2.5% MACE over next 6 weeks - Discharge Home Score 4 - 6: 20.3% MACE over next 6 weeks - Admit for Clinical Observation Score 7 - 10: 72.7% MACE over next 6 weeks - Early Invasive Strategies Current Medications: Current Medications Medications (Trade) Dose Ordered Sig/Kyle Start Time Stop Time Status Last Admin Dose Admin Sodium Chloride 1,000 ml @ 1,000 mls/hr 1X ONCE 05/09/20 21:00 05/09/20 21:59 DC 05/09/20 21:19 1,000 MLS/HR Allergies: Allergies: Allergies Coded Allergies Type Severity Reaction Last Updated Verified diphenhydramine Allergy Severe SOB 12/13/17 Yes Physical Exam: PE: Constitutional: Well developed, well nourished, somnolent HENT: Normocephalic, atraumatic Eyes: PERRL, EOMI, conjunctiva normal, no discharge Neck: Normal range of motion, supple Lungs & Thorax: Equal chest rise and fall, no respiratory distress Abdomen: Soft, no tenderness Skin: Warm, dry, no erythema, no rash Extremities: No tenderness, ROM intact, no edema Neurologic: Alert and oriented to name and year but confused to place, somnolent, no focal deficits noted Psychologic: Obtunded, suicidal ideation, judgement poor Current Patient Data: Labs: Laboratory Tests Test 05/09/20 21:05 05/09/20 21:25 Urine Opiates Screen Neg (NEG) Urine Methadone Screen Neg (NEG) Urine Barbiturates Neg (NEG) Urine Phencyclidine Screen Neg (NEG) Urine Amphetamine/Methamphetamine Neg (NEG) Urine Benzodiazepines Screen Neg (NEG) Urine Cocaine Screen Neg (NEG) Urine Cannabinoids Screen Neg (NEG) Urine Ethyl Alcohol Neg (NEG) White Blood Count 8.3 x10^3/uL (4.0-11.0) Red Blood Count 4.30 x10^6/uL (3.50-5.40) Hemoglobin 12.9 g/dL (12.0-15.5) Hematocrit 38.6 % (36.0-47.0) Mean Corpuscular Volume 90 fL (79-100) Mean Corpuscular Hemoglobin 30 pg (25-35) Mean Corpuscular Hemoglobin Concent 33 g/dL (31-37) Red Cell Distribution Width 13.9 % (11.5-14.5) Platelet Count 255 x10^3/uL (140-400) Neutrophils (%) (Auto) 58 % (31-73) Lymphocytes (%) (Auto) 28 % (24-48) Monocytes (%) (Auto) 9 % (0-9) Eosinophils (%) (Auto) 5 % (0-3) H Basophils (%) (Auto) 1 % (0-3) Neutrophils # (Auto) 4.8 x10^3/uL (1.8-7.7) Lymphocytes # (Auto) 2.3 x10^3/uL (1.0-4.8) Monocytes # (Auto) 0.7 x10^3/uL (0.0-1.1) Eosinophils # (Auto) 0.4 x10^3/uL (0.0-0.7) Basophils # (Auto) 0.1 x10^3/uL (0.0-0.2) Prothrombin Time 12.8 SEC (11.7-14.0) Prothrombin Time INR 1.0 (0.8-1.1) Activated Partial Thromboplast Time 28 SEC (24-38) Sodium Level 142 mmol/L (136-145) Potassium Level 3.3 mmol/L (3.5-5.1) L Chloride Level 107 mmol/L (98-107) Carbon Dioxide Level 26 mmol/L (21-32) Anion Gap 9 (6-14) Blood Urea Nitrogen 8 mg/dL (7-20) Creatinine 0.9 mg/dL (0.6-1.0) Estimated GFR (Cockcroft-Gault) 62.6 BUN/Creatinine Ratio 9 (6-20) Glucose Level 85 mg/dL (70-99) Calcium Level 8.8 mg/dL (8.5-10.1) Magnesium Level 2.4 mg/dL (1.8-2.4) Total Bilirubin 0.3 mg/dL (0.2-1.0) Aspartate Amino Transferase (AST) 20 U/L (15-37) Alanine Aminotransferase (ALT) 21 U/L (14-59) Alkaline Phosphatase 103 U/L (46-116) Troponin I Quantitative < 0.017 ng/mL (0.000-0.055) Total Protein 6.5 g/dL (6.4-8.2) Albumin 3.2 g/dL (3.4-5.0) L Albumin/Globulin Ratio 1.0 (1.0-1.7) Salicylates Level 4.2 mg/dL (2.8-20.0) Salicylate Last Dose Date Salicylate Last Dose Time Acetaminophen Level < 2 mcg/ml (10-30) L Acetaminophen Last Dose Date Acetaminophen Last Dose Time Ethyl Alcohol Level < 10 mg/dL (0-10) Laboratory Tests 05/09/20 21:25 Laboratory Tests 05/09/20 21:25 Vital Signs: Vital Signs Date Time Temp Pulse Resp B/P (MAP) Pulse Ox O2 Delivery O2 Flow Rate FiO2 05/09/20 20:45 98.6 98 18 107/69 (82) 99 Room Air 98.6 EKG: EKG: @2119 NSR at 84bpm, NO ST elevation, QRS 80ms, QT/QTc 382/455ms, t wave inversion V2-V4 Radiology/Procedures: Radiology/Procedures: [] Course & Med Decision Making: Course & Med Decision Making Pertinent Lab studies reviewed. (See chart for details) Patient presents with intentional overdose of Risperidone in attempt to harm herself. Unclear exactly how many pills (reportedly between 10-30 tabs) at approximately 1800. EKG stable. Labs obtained and posted to chart. IVF hydration given. Supportive supplemental O2 also provided. Hypokalemia addressed. Poison control contacted. Risperidone affects can last up to approximately 12 hours and therefore admission may be beneficial. Patient requiring admission for further evaluation and treatment. Discussed with Dr. Cruz (hospitalist) who is in agreement with admit. Consult for PAT placed for AM. Discussed findings and plan with patient, who acknowledges understanding and agreement. Dragon Disclaimer: Dragon Disclaimer: This electronic medical record was generated, in whole or in part, using a voice recognition dictation system. Departure Departure Impression: Primary Impression: Suicide attempt by drug ingestion Qualified Codes: T50.902A - Poisoning by unspecified drugs, medicaments and biological substances, intentional self-harm, initial encounter Additional Impression: Hypokalemia Disposition: ADMITTED INPATIENT Admitting Physician: CAMDEN Owens) Condition: GUARDED Referrals: UNKNOWN PCP NAME (PCP) Justicifation of Admission Dx: Justifications for Admission: Justification of Admission Dx: Yes Comments: Intentional overdose, suicide attempt Critical Care Time Critical care time was 30 minutes which includes time at bedside, spent in discussion of patient's care with specialists and/or family members, with interpretation of laboratory and/or radiological studies and is exclusive of procedures. Critical Care Time Critical care time was [30] minutes exclusive of procedures. LIZ ZAVALA DO May 09, 2020 22:03
[2020-05-09] MEDS ORDERED: POTASSIUM CHLORIDE 20 MEQ TABLET.ER. PO ONE (22:30)
[2020-05-10] MEDS ORDERED: ONDANSETRON PF 4 MG/2 ML VIAL. IV PRN
--- NOTE | 2020-05-10 04:43 | NUR ---
Pt. just arrived from ED via bed w/ a suicide attempt of taking 10-30 Risperidol pills. She is drowsy and orientated and will make most needs known. Denies SI at this time.
[2020-05-10 04:50] VITALS: BP 108/71
[2020-05-10 07:00] VITALS: BP 115/79
--- NOTE | 2020-05-10 08:15 | PDOC1 ---
History and Physical Date of Admission Date of Admission DATE: 05/10/20 TIME: 08:07 Identification/Chief Complaint Chief Complaint Intentional overdose Source Source: Patient History of Present Illness History of Present Illness Patient is a 65-year-old female with past medical history of anxiety and depression who presents to the ER for evaluation after intentional overdose. Patient states she took roughly 30 sleeping pills that start with the letter "Z" yesterday afternoon after getting in an argument with her daughter over not being able to see her granddaughter. She also takes Seroquel and BuSpar for her anxiety and depression. She currently denies any suicidal or homicidal ideation, and denies any history of this in the past. Patient has been attempting to contact her psychiatrist to adjust her medications but has been unable to be in touch with him recently. Past Medical History Pulmonary: COPD, Other Psych: Anxiety, Depression, Other Musculoskeletal: Osteoarthritis Past Surgical History Past Surgical History: No pertinent history Family History Family History: Depression Social History Smoke: No ALCOHOL: none Drugs: None Current Problem List Problem List Problems Medical Problems: (1) Hypokalemia Status: Acute (2) Suicide attempt by drug ingestion Status: Acute Current Medications Current Medications Current Medications Sodium Chloride 1,000 ml @ 1,000 mls/hr 1X ONCE IV Last administered on 05/09/20at 21:19; Start 05/09/20 at 21:00; Stop 05/09/20 at 21:59; Status DC Potassium Chloride (Klor-Con) 40 meq 1X ONCE PO Last administered on 05/09/20at 23:27; Start 05/09/20 at 22:30; Stop 05/09/20 at 22:31; Status DC Ondansetron HCl (Zofran) 4 mg PRN Q8HRS PRN IV NAUSEA/VOMITING 1ST CHOICE; St art 05/10/20 at 00:00; Stop 05/10/20 at 23:59 Active Scripts Active Meclizine Hcl 25 Mg Tablet 1 Tab PO TID PRN Reported Hydrochlorothiazide Tablet (Hydrochlorothiazide) 12.5 Mg Tablet 12.5 Mg PO DAILY Citalopram Hbr (Citalopram Hydrobromide) 20 Mg Tablet 30 Mg PO DAILY Pantoprazole Sodium (Pantoprazole Sodium) 40 Mg Tablet.dr 40 Mg PO DAILY Alprazolam 0.5 Mg Tablet 0.5 Mg PO PRN Q6HRS PRN Bupropion Xl (Bupropion Hcl) 300 Mg Tab.er.24h 300 Mg PO DAILY Atorvastatin Calcium 20 Mg Tablet 20 Mg PO DAILY Amlodipine Besylate 10 Mg Tablet 10 Mg PO DAILY Mirapex (Pramipexole Di-Hcl) 0.25 Mg Tablet 0.5 Mg PO HS Allergies Allergies: Coded Allergies: diphenhydramine (Verified Allergy, Severe, SOB, 12/13/17) ROS Review of System GENERAL: No history of weight change, weakness or fevers. SKIN: No bruising, hair changes or rashes. EYES: No blurred, double or loss of vision. NOSE AND THROAT: No history of nosebleeds, hoarseness or sore throat. HEART: Denies chest pain, denies palpitations. LUNGS: Denies cough, hemoptysis, wheezing or shortness of breath. GASTROINTESTINAL: Denies nausea, vomiting, abdominal pain. GENITOURINARY: Denies dysuria, frequency, urgency, hematuria. NEUROLOGIC: Denies history of numbness, tingling, tremor or weakness. PSYCHIATRIC: Denies SI, denies HI ENDOCRINE: No history of heat or cold intolerance, polyuria or polydipsia. EXTREMITIES: Denies muscle weakness, joint pain, pain on walking or stiffness.02 Physical Exam Physical Exam General: Alert, Oriented X3, Cooperative, No acute distress HEENT: PERRLA, EOMI Lungs: Clear to auscultation, Normal air movement Heart: RRR, no murmurs Cardiovascular: S1, S2 Abdomen: Normal bowel sounds, Soft, No tenderness Extremities: No clubbing, No cyanosis Skin: No rashes, No significant lesion Neuro: Normal speech, Normal tone, Sensation intact Psych/Mental Status: Mental status NL, Mood NL Vitals Vitals Vital Signs Date Time Temp Pulse Resp B/P (MAP) Pulse Ox O2 Delivery O2 Flow Rate FiO2 05/10/20 04:50 98.1 75 18 108/71 (83) 99 Room Air 98.1 05/10/20 03:50 2.0 Labs Labs Laboratory Tests Test 05/09/20 21:05 05/09/20 21:25 Urine Opiates Screen Neg (NEG) Urine Methadone Screen Neg (NEG) Urine Barbiturates Neg (NEG) Urine Phencyclidine Screen Neg (NEG) Urine Amphetamine/Methamphetamine Neg (NEG) Urine Benzodiazepines Screen Neg (NEG) Urine Cocaine Screen Neg (NEG) Urine Cannabinoids Screen Neg (NEG) Urine Ethyl Alcohol Neg (NEG) White Blood Count 8.3 x10^3/uL (4.0-11.0) Red Blood Count 4.30 x10^6/uL (3.50-5.40) Hemoglobin 12.9 g/dL (12.0-15.5) Hematocrit 38.6 % (36.0-47.0) Mean Corpuscular Volume 90 fL (79-100) Mean Corpuscular Hemoglobin 30 pg (25-35) Mean Corpuscular Hemoglobin Concent 33 g/dL (31-37) Red Cell Distribution Width 13.9 % (11.5-14.5) Platelet Count 255 x10^3/uL (140-400) Neutrophils (%) (Auto) 58 % (31-73) Lymphocytes (%) (Auto) 28 % (24-48) Monocytes (%) (Auto) 9 % (0-9) Eosinophils (%) (Auto) 5 % (0-3) Basophils (%) (Auto) 1 % (0-3) Neutrophils # (Auto) 4.8 x10^3/uL (1.8-7.7) Lymphocytes # (Auto) 2.3 x10^3/uL (1.0-4.8) Monocytes # (Auto) 0.7 x10^3/uL (0.0-1.1) Eosinophils # (Auto) 0.4 x10^3/uL (0.0-0.7) Basophils # (Auto) 0.1 x10^3/uL (0.0-0.2) Prothrombin Time 12.8 SEC (11.7-14.0) Prothromb Time International Ratio 1.0 (0.8-1.1) Activated Partial Thromboplast Time 28 SEC (24-38) Sodium Level 142 mmol/L (136-145) Potassium Level 3.3 mmol/L (3.5-5.1) Chloride Level 107 mmol/L (98-107) Carbon Dioxide Level 26 mmol/L (21-32) Anion Gap 9 (6-14) Blood Urea Nitrogen 8 mg/dL (7-20) Creatinine 0.9 mg/dL (0.6-1.0) Estimated GFR (Cockcroft-Gault) 62.6 BUN/Creatinine Ratio 9 (6-20) Glucose Level 85 mg/dL (70-99) Calcium Level 8.8 mg/dL (8.5-10.1) Magnesium Level 2.4 mg/dL (1.8-2.4) Total Bilirubin 0.3 mg/dL (0.2-1.0) Aspartate Amino Transf (AST/SGOT) 20 U/L (15-37) Alanine Aminotransferase (ALT/SGPT) 21 U/L (14-59) Alkaline Phosphatase 103 U/L (46-116) Troponin I Quantitative < 0.017 ng/mL (0.000-0.055) Total Protein 6.5 g/dL (6.4-8.2) Albumin 3.2 g/dL (3.4-5.0) Albumin/Globulin Ratio 1.0 (1.0-1.7) Salicylates Level 4.2 mg/dL (2.8-20.0) Salicylate Last Dose Date Salicylate Last Dose Time Acetaminophen Level < 2 mcg/ml (10-30) Acetaminophen Last Dose Date Acetaminophen Last Dose Time Ethyl Alcohol Level < 10 mg/dL (0-10) Laboratory Tests Test 05/09/20 21:05 05/09/20 21:25 Urine Opiates Screen Neg (NEG) Urine Methadone Screen Neg (NEG) Urine Barbiturates Neg (NEG) Urine Phencyclidine Screen Neg (NEG) Urine Amphetamine/Methamphetamine Neg (NEG) Urine Benzodiazepines Screen Neg (NEG) Urine Cocaine Screen Neg (NEG) Urine Cannabinoids Screen Neg (NEG) Urine Ethyl Alcohol Neg (NEG) White Blood Count 8.3 x10^3/uL (4.0-11.0) Red Blood Count 4.30 x10^6/uL (3.50-5.40) Hemoglobin 12.9 g/dL (12.0-15.5) Hematocrit 38.6 % (36.0-47.0) Mean Corpuscular Volume 90 fL (79-100) Mean Corpuscular Hemoglobin 30 pg (25-35) Mean Corpuscular Hemoglobin Concent 33 g/dL (31-37) Red Cell Distribution Width 13.9 % (11.5-14.5) Platelet Count 255 x10^3/uL (140-400) Neutrophils (%) (Auto) 58 % (31-73) Lymphocytes (%) (Auto) 28 % (24-48) Monocytes (%) (Auto) 9 % (0-9) Eosinophils (%) (Auto) 5 % (0-3) Basophils (%) (Auto) 1 % (0-3) Neutrophils # (Auto) 4.8 x10^3/uL (1.8-7.7) Lymphocytes # (Auto) 2.3 x10^3/uL (1.0-4.8) Monocytes # (Auto) 0.7 x10^3/uL (0.0-1.1) Eosinophils # (Auto) 0.4 x10^3/uL (0.0-0.7) Basophils # (Auto) 0.1 x10^3/uL (0.0-0.2) Prothrombin Time 12.8 SEC (11.7-14.0) Prothromb Time International Ratio 1.0 (0.8-1.1) Activated Partial Thromboplast Time 28 SEC (24-38) Sodium Level 142 mmol/L (136-145) Potassium Level 3.3 mmol/L (3.5-5.1) Chloride Level 107 mmol/L (98-107) Carbon Dioxide Level 26 mmol/L (21-32) Anion Gap 9 (6-14) Blood Urea Nitrogen 8 mg/dL (7-20) Creatinine 0.9 mg/dL (0.6-1.0) Estimated GFR (Cockcroft-Gault) 62.6 BUN/Creatinine Ratio 9 (6-20) Glucose Level 85 mg/dL (70-99) Calcium Level 8.8 mg/dL (8.5-10.1) Magnesium Level 2.4 mg/dL (1.8-2.4) Total Bilirubin 0.3 mg/dL (0.2-1.0) Aspartate Amino Transf (AST/SGOT) 20 U/L (15-37) Alanine Aminotransferase (ALT/SGPT) 21 U/L (14-59) Alkaline Phosphatase 103 U/L (46-116) Troponin I Quantitative < 0.017 ng/mL (0.000-0.055) Total Protein 6.5 g/dL (6.4-8.2) Albumin 3.2 g/dL (3.4-5.0) Albumin/Globulin Ratio 1.0 (1.0-1.7) Salicylates Level 4.2 mg/dL (2.8-20.0) Salicylate Last Dose Date Salicylate Last Dose Time Acetaminophen Level < 2 mcg/ml (10-30) Acetaminophen Last Dose Date Acetaminophen Last Dose Time Ethyl Alcohol Level < 10 mg/dL (0-10) VTE Prophylaxis Ordered VTE Prophylaxis Devices: No VTE Pharmacological Prophylaxi: Yes Assessment/Plan Assessment/Plan Intentional overdose, suicidal ideation, hypokalemia Plan: Suicide precautions, one-to-one sitter, urine drug screen was negative. Patient currently denies any suicidal ideation or homicidal ideation. Will discontinue sleeping pills upon discharge. Consult to psychiatry. Oral potassium replacement. Cardiac diet, VTE prophylaxis, full code. Justifications for Admission Other Justification NGOC IVEY MD May 10, 2020 08:15
--- NOTE | 2020-05-10 08:46 | EKG ---
[facility] [address] [place] [address] Test Date: 2020-05-09 Test Time: 21:19:00 Pat Name: NATHANIEL PEARL Department: Room: Gender: F Division Head: : 1955 Requested By: LIZ ZAVALA Order Number: [id number] Reading MD: Measurements Intervals [place] Rate: 84 P: 59 NH: 128 QRS: 54 QRSD: 80 T: 42 QT: 382 QTc: 455 Interpretive Statements SINUS RHYTHM T ABNORMALITY IN ANTEROSEPTAL LEADS ABNORMAL ECG RI6.02 No previous ECG available for comparison
[2020-05-10] MEDS ORDERED: MECLIZINE HCL 12.5 MG TABLET. PO PRN (09:00)
--- NOTE | 2020-05-10 10:16 | NUR ---
TEE following. Discussed with RN, pt from home, room air, cardiac diet. Pt currently on 1:1 observation. BOB consulted, Hernan will meet with pt today. Pt will need a COVID-19 test if going for inpatient treatment. RN notified. TEE will continue to follow. Addendum: 05/10/20 at 1201 by CHRISTOFER CARVER SW Hernan FROST) met with patient. Pt denying SI currently, pt has her own psychiatrist. Pt was provided with 24 hour crisis numbers and completed a crisis safety plan. Hernan has cleared pt to discharge home, pending Dr. Jalloh's eval and recommendations. TEE will continue to follow.
[2020-05-10 11:00] VITALS: BP 122/66
[2020-05-10] MEDS: buPROPion XL 150 MG TAB.ER.24H. PO SCH (11:33)
[2020-05-10] MEDS: ATORVASTATIN CALCIUM 20 MG TABLET PO SCH (11:33)
[2020-05-10] MEDS: CITALOPRAM 10 MG TABLET. PO SCH (11:33)
[2020-05-10] MEDS: PANTOPRAZOLE 40 MG TABLET.DR. PO SCH (11:33)
[2020-05-10 14:45] VITALS: BP 132/68
--- NOTE | 2020-05-10 20:27 | PDOC1 ---
History & Psych Evaluation Date of Service: DOS: DATE: 05/10/20 TIME: 20:26 Source: Source: Caregiver, Chart review, Patient Identification: Identification She is a 65-year-old female with history of major depressive disorder admitted with suicidal attempt by overdose Chief Complaint: Chief Complaint Suicidal attempt, depression, anxiety History of Present Illness: HPI: She is a 65-year-old female with history of major depressive disorder and generalized anxiety disorder admitted with intentional overdose on her sleeping pills. She has history of multiple previous suicidal attempts. Upon interview, she appears tearful, anxious. States, she got upset and angry upon behavior of her daughter. States, she was concerned about her daughter, and granddaughter. States, her daughter and her significant other were fighting and he was making holes in the wall. She was concerned about the safety of her granddaughter and inform police. He states when she informed police, her daughter get mad at her and started yelling. States, she thinks she did the right thing to protect her daughter and granddaughter who is just 3 years old. However, her daughter responded differently and instead of appreciating her started cussing and yelling her. States, out of that frustration, she intentionally took her sleeping pills. States, she knew that she is taking and aware of the consequences. States she will be very honest about her attempt. Reporting depression which is getting worse recently. Anxiety is reportedly high. States, at times because of anxiety she is rambling and having loud speech. Aside from that she denies auditory or visual hallucinations. She denies history of bipolar mood disorder. She denies illicit substance use. She denies psychotic break. Stating, she attempted suicide 2 days ago by overdose on BuSpar and sleeping pills, not sure whether or not a separate attempt or in context of the same. Past Psychiatric History: Previously diagnosed with major depression, generalized anxiety disorder. Previous history of psychiatric hospital admissions including [facility]. History of multiple suicidal attempts in the past first attempt at the age of 11. History of some nonsuicidal self-injurious behavior including scratching herself and is scabs Past Medical History: Please see medical chart for detail Family History: Mother has depression and anxiety. Social History: Social History: She lives by herself in an apartment. twice and twice. Denies illicit substance use or alcohol abuse. Denies legal issues Current Medications: Current Medications Current Medications Medications (Trade) Dose Ordered Sig/Kyle Start Time Stop Time Status Last Admin Dose Admin Atorvastatin Calcium (Lipitor) 20 mg DAILY 05/10/20 09:00 05/10/20 11:33 20 MG Bupropion HCl (Wellbutrin Xl) 300 mg DAILY 05/10/20 09:00 05/10/20 11:33 300 MG Citalopram Hydrobromide (CeleXA) 30 mg DAILY 05/10/20 09:00 05/10/20 11:33 30 MG Meclizine HCl (Antivert) 25 mg PRN TID PRN 05/10/20 09:00 Ondansetron HCl (Zofran) 4 mg PRN Q8HRS PRN 05/10/20 00:00 05/10/20 23:59 Pantoprazole Sodium (Protonix) 40 mg DAILYAC 05/10/20 09:00 05/10/20 11:33 40 MG Potassium Chloride (Klor-Con) 40 meq 1X ONCE 05/09/20 22:30 05/09/20 22:31 DC 05/09/20 23:27 40 MEQ Pramipexole Dihydrochloride (miraPEX) 0.5 mg HS 05/10/20 21:00 Sodium Chloride 1,000 ml @ 1,000 mls/hr 1X ONCE 05/09/20 21:00 05/09/20 21:59 DC 05/09/20 21:19 1,000 MLS/HR Allergies: Allergies: Coded Allergies: diphenhydramine (Verified Allergy, Severe, SOB, 12/13/17) Mental Status Examination: Mental Status Examination female appears her stated age in Cooperative and interactive Alert and oriented Thought process linear and goal-directed Denies suicidal or homicidal thoughts. Denies auditory or visual hallucinations. No abnormal perception noted. Mood appears anxious and depressed Affect is labile. Insight Limited Impulse control poor Judgment poor Attention span and concentration fair Recent and remote memory intact. ROS: 14 point review of system is otherwise negative except for stated above Physical Exam: Refer to Physician's note. [employer]PER[employer]: No focal deficit MSK: No EPS, TDK, or abnormal involuntary movements Vitals: Vitals Vital Signs Date Time Temp Pulse Resp B/P (MAP) Pulse Ox O2 Delivery O2 Flow Rate FiO2 05/10/20 14:45 97.8 80 18 132/68 (89) 100 Room Air 97.8 05/10/20 03:50 2.0 Labs: Labs Laboratory Tests Test 05/09/20 21:05 05/09/20 21:25 Urine Opiates Screen Neg (NEG) Urine Methadone Screen Neg (NEG) Urine Barbiturates Neg (NEG) Urine Phencyclidine Screen Neg (NEG) Urine Amphetamine/Methamphetamine Neg (NEG) Urine Benzodiazepines Screen Neg (NEG) Urine Cocaine Screen Neg (NEG) Urine Cannabinoids Screen Neg (NEG) Urine Ethyl Alcohol Neg (NEG) White Blood Count 8.3 x10^3/uL (4.0-11.0) Red Blood Count 4.30 x10^6/uL (3.50-5.40) Hemoglobin 12.9 g/dL (12.0-15.5) Hematocrit 38.6 % (36.0-47.0) Mean Corpuscular Volume 90 fL (79-100) Mean Corpuscular Hemoglobin 30 pg (25-35) Mean Corpuscular Hemoglobin Concent 33 g/dL (31-37) Red Cell Distribution Width 13.9 % (11.5-14.5) Platelet Count 255 x10^3/uL (140-400) Neutrophils (%) (Auto) 58 % (31-73) Lymphocytes (%) (Auto) 28 % (24-48) Monocytes (%) (Auto) 9 % (0-9) Eosinophils (%) (Auto) 5 % (0-3) Basophils (%) (Auto) 1 % (0-3) Neutrophils # (Auto) 4.8 x10^3/uL (1.8-7.7) Lymphocytes # (Auto) 2.3 x10^3/uL (1.0-4.8) Monocytes # (Auto) 0.7 x10^3/uL (0.0-1.1) Eosinophils # (Auto) 0.4 x10^3/uL (0.0-0.7) Basophils # (Auto) 0.1 x10^3/uL (0.0-0.2) Prothrombin Time 12.8 SEC (11.7-14.0) Prothromb Time International Ratio 1.0 (0.8-1.1) Activated Partial Thromboplast Time 28 SEC (24-38) Sodium Level 142 mmol/L (136-145) Potassium Level 3.3 mmol/L (3.5-5.1) Chloride Level 107 mmol/L (98-107) Carbon Dioxide Level 26 mmol/L (21-32) Anion Gap 9 (6-14) Blood Urea Nitrogen 8 mg/dL (7-20) Creatinine 0.9 mg/dL (0.6-1.0) Estimated GFR (Cockcroft-Gault) 62.6 BUN/Creatinine Ratio 9 (6-20) Glucose Level 85 mg/dL (70-99) Calcium Level 8.8 mg/dL (8.5-10.1) Magnesium Level 2.4 mg/dL (1.8-2.4) Total Bilirubin 0.3 mg/dL (0.2-1.0) Aspartate Amino Transf (AST/SGOT) 20 U/L (15-37) Alanine Aminotransferase (ALT/SGPT) 21 U/L (14-59) Alkaline Phosphatase 103 U/L (46-116) Troponin I Quantitative < 0.017 ng/mL (0.000-0.055) Total Protein 6.5 g/dL (6.4-8.2) Albumin 3.2 g/dL (3.4-5.0) Albumin/Globulin Ratio 1.0 (1.0-1.7) Salicylates Level 4.2 mg/dL (2.8-20.0) Salicylate Last Dose Date Salicylate Last Dose Time Acetaminophen Level < 2 mcg/ml (10-30) Acetaminophen Last Dose Date Acetaminophen Last Dose Time Ethyl Alcohol Level < 10 mg/dL (0-10) Laboratory Tests Test 05/09/20 21:05 05/09/20 21:25 Urine Opiates Screen Neg (NEG) Urine Methadone Screen Neg (NEG) Urine Barbiturates Neg (NEG) Urine Phencyclidine Screen Neg (NEG) Urine Amphetamine/Methamphetamine Neg (NEG) Urine Benzodiazepines Screen Neg (NEG) Urine Cocaine Screen Neg (NEG) Urine Cannabinoids Screen Neg (NEG) Urine Ethyl Alcohol Neg (NEG) White Blood Count 8.3 x10^3/uL (4.0-11.0) Red Blood Count 4.30 x10^6/uL (3.50-5.40) Hemoglobin 12.9 g/dL (12.0-15.5) Hematocrit 38.6 % (36.0-47.0) Mean Corpuscular Volume 90 fL (79-100) Mean Corpuscular Hemoglobin 30 pg (25-35) Mean Corpuscular Hemoglobin Concent 33 g/dL (31-37) Red Cell Distribution Width 13.9 % (11.5-14.5) Platelet Count 255 x10^3/uL (140-400) Neutrophils (%) (Auto) 58 % (31-73) Lymphocytes (%) (Auto) 28 % (24-48) Monocytes (%) (Auto) 9 % (0-9) Eosinophils (%) (Auto) 5 % (0-3) Basophils (%) (Auto) 1 % (0-3) Neutrophils # (Auto) 4.8 x10^3/uL (1.8-7.7) Lymphocytes # (Auto) 2.3 x10^3/uL (1.0-4.8) Monocytes # (Auto) 0.7 x10^3/uL (0.0-1.1) Eosinophils # (Auto) 0.4 x10^3/uL (0.0-0.7) Basophils # (Auto) 0.1 x10^3/uL (0.0-0.2) Prothrombin Time 12.8 SEC (11.7-14.0) Prothromb Time International Ratio 1.0 (0.8-1.1) Activated Partial Thromboplast Time 28 SEC (24-38) Sodium Level 142 mmol/L (136-145) Potassium Level 3.3 mmol/L (3.5-5.1) Chloride Level 107 mmol/L (98-107) Carbon Dioxide Level 26 mmol/L (21-32) Anion Gap 9 (6-14) Blood Urea Nitrogen 8 mg/dL (7-20) Creatinine 0.9 mg/dL (0.6-1.0) Estimated GFR (Cockcroft-Gault) 62.6 BUN/Creatinine Ratio 9 (6-20) Glucose Level 85 mg/dL (70-99) Calcium Level 8.8 mg/dL (8.5-10.1) Magnesium Level 2.4 mg/dL (1.8-2.4) Total Bilirubin 0.3 mg/dL (0.2-1.0) Aspartate Amino Transf (AST/SGOT) 20 U/L (15-37) Alanine Aminotransferase (ALT/SGPT) 21 U/L (14-59) Alkaline Phosphatase 103 U/L (46-116) Troponin I Quantitative < 0.017 ng/mL (0.000-0.055) Total Protein 6.5 g/dL (6.4-8.2) Albumin 3.2 g/dL (3.4-5.0) Albumin/Globulin Ratio 1.0 (1.0-1.7) Salicylates Level 4.2 mg/dL (2.8-20.0) Salicylate Last Dose Date Salicylate Last Dose Time Acetaminophen Level < 2 mcg/ml (10-30) Acetaminophen Last Dose Date Acetaminophen Last Dose Time Ethyl Alcohol Level < 10 mg/dL (0-10) Diagnosis: Diagnosis: 1suicidal attempt by overdose 2major depressive disorder, recurrent, severe without psychotic features. 3generalized anxiety disorder. Assessment: She is a female admitted with intentional overdose on her prescribed medications. She is a struggling with depression in context of her major depressive disorder likely precipitated by her psychosocial circumstances including her discord with daughter. She admits that it was some kind of premeditated attempt, she was aware of attempt and the consequences. She needs inpatient psychiatric admission for crisis stabilization and further management. Her psychotropic medications can be continued for the time being. Plan: Continue psychotropic medications as is. Obtain EKG to assess QTc interval. Risks, benefits, alternatives of the treatment are discussed. Adverse drug reaction of the medications prescribed or discussed including black box warnings. Psychoeducation provided. Supportive psychotherapy provided. Patient's needs inpatient psychiatric hospital admission for crisis stabilization. Thank you for involving inpatient NEHA BEUGM MD May 10, 2020 20:27
[2020-05-10] MEDS: PRAMIPEXOLE 0.25 MG TABLET. PO SCH (21:38)
[2020-05-10 23:00] VITALS: BP 105/68
[2020-05-11 07:32] VITALS: BP 116/71
--- NOTE | 2020-05-11 09:26 | NUR ---
SW following. Discussed with RN, Dr. Jalloh recommending inpatient psych placement. SW notified Hernan with PAT, need to await COVID-19 result before moving forward with referrals and placement. SW will continue to follow.
[2020-05-11] MEDS: ATORVASTATIN CALCIUM 20 MG TABLET PO SCH (10:26)
[2020-05-11] MEDS: PANTOPRAZOLE 40 MG TABLET.DR. PO SCH (10:26)
[2020-05-11] MEDS: CITALOPRAM 10 MG TABLET. PO SCH (10:26)
[2020-05-11] MEDS: buPROPion XL 150 MG TAB.ER.24H. PO SCH (10:26)
[2020-05-11 11:04] VITALS: BP 120/74
--- NOTE | 2020-05-11 15:25 | PDOC ---
[employer] [facility]GRESS NOTE Date of Service DOS: DATE: 05/11/20 TIME: 15:22 Chief Complaint Chief Complaint Intentional overdose History of Present Illness History of Present Illness Patient evaluated at bedside. Discussed my recommendation of inpatient psychiatric treatment and my concern after speaking with her son. Patient is agreeable to inpatient psychiatric care. Vitals/I&O Vitals/I&O: Vital Signs Date Time Temp Pulse Resp B/P (MAP) Pulse Ox O2 Delivery O2 Flow Rate FiO2 05/11/20 11:04 98.0 84 18 120/74 (89) 98 Room Air 98.0 I & O 05/10/20 05/10/20 05/11/20 15:00 23:00 07:00 Intake Total 600 ml 300 ml 0 ml Balance 600 ml 300 ml 0 ml Physical Exam General: Alert Heart: Regular rate Lungs: Clear Abdomen: Soft, No tenderness Extremities: No clubbing, No cyanosis Skin: No rashes, No significant lesion Assessment and Plan Assessmemt and Plan Problems Medical Problems: (1) Hypokalemia Status: Acute (2) Overdose Status: Acute (3) Suicide attempt by drug ingestion Status: Acute Comment Review of Relevant I have reviewed the following items clifford (where applicable) has been applied. Medications: Current Medications Medications (Trade) Dose Ordered Sig/Kyel Route PRN Reason Start Time Stop Time Status Last Admin Dose Admin Pramipexole Dihydrochloride (miraPEX) 0.5 mg HS PO 05/10/20 21:00 05/10/20 21:38 Justifications for Admission Other Justification NGOC IVEY MD May 11, 2020 15:25
[2020-05-11 15:30] VITALS: BP 136/73
--- NOTE | 2020-05-11 17:36 | PDOC ---
F/U PHYSCH PROG NOTE Subjective: She is a female with history of major depressive disorder admitted with suicidal attempt by overdose, seen for routine follow-up. Information is obtained from nursing staff as well. No major emotional or behavioral breakdown reported overnight. She continues to be depressed and anxious. States, she needs to take her self out of the house to stressors which are prevailing around her including her discordant relationship between her daughter and her significant other which it is emotionally impacting her. Denies suicidal or homicidal thoughts. Denies auditory or visual hallucinations. No evidence of jacque or hypomania. Objective: 14 point review of system is otherwise negative except for as stated above. Vital Signs: Vital Signs Date Time Temp Pulse Resp B/P (MAP) Pulse Ox O2 Delivery O2 Flow Rate FiO2 05/11/20 15:30 98.2 75 24 136/73 (94) 96 Room Air 98.2 05/10/20 03:50 2.0 Medications: Current Medications Medications (Trade) Dose Ordered Sig/Kyle Start Time Stop Time Status Last Admin Dose Admin Atorvastatin Calcium (Lipitor) 20 mg DAILY 05/10/20 09:00 05/11/20 10:26 Bupropion HCl (Wellbutrin Xl) 300 mg DAILY 05/10/20 09:00 05/11/20 10:26 Citalopram Hydrobromide (CeleXA) 30 mg DAILY 05/10/20 09:00 05/11/20 10:26 Meclizine HCl (Antivert) 25 mg PRN TID PRN 05/10/20 09:00 Ondansetron HCl (Zofran) 4 mg PRN Q8HRS PRN 05/10/20 00:00 05/10/20 23:59 DC Pantoprazole Sodium (Protonix) 40 mg DAILYAC 05/10/20 09:00 05/11/20 10:26 Potassium Chloride (Klor-Con) 40 meq 1X ONCE 05/09/20 22:30 05/09/20 22:31 DC 05/09/20 23:27 Pramipexole Dihydrochloride (miraPEX) 0.5 mg HS 05/10/20 21:00 05/10/20 21:38 Sodium Chloride 1,000 ml @ 1,000 mls/hr 1X ONCE 05/09/20 21:00 05/09/20 21:59 DC 05/09/20 21:19 Physical Exam: Mental Status Exam: female appears her stated age in Cooperative and interactive Alert and oriented Thought process linear and goal-directed Denies suicidal or homicidal thoughts. Denies auditory or visual hallucinations. No abnormal perception noted. Mood appears anxious and depressed Affect is labile Insight Fair Impulse control poor Judgment poor Attention span and concentration fair Recent and remote memory intact. Physical Exam: Refer to Physician's note. X RAY PHYSICIAN: No focal deficit MSK: No EPS, TDK, or abnormal involuntary movements Diagnosis: 1suicidal attempt by overdose 2major depressive disorder, recurrent, severe without psychotic features. 3generalized anxiety disorder. Assessment: She is a female admitted with intentional overdose on her prescribed medications. She is a struggling with depression in context of her major depressive disorder likely precipitated by her psychosocial circumstances including her discord with daughter. She admits that it was some kind of premeditated attempt, she was aware of attempt and the consequences. She needs inpatient psychiatric admission for crisis stabilization and further management. Her psychotropic medications can be continued for the time being. Plan: Continue psychotropic medications as is. Obtain EKG to assess QTc interval. Risks, benefits, alternatives of the treatment are discussed. Adverse drug reaction of the medications prescribed or discussed including black box warnings. Psychoeducation provided. Supportive psychotherapy provided. Patient's needs inpatient psychiatric hospital admission for crisis stabilization. Thank you for involving inpatient NEHA BEGUM MD May 11, 2020 17:36
[2020-05-11 19:00] VITALS: BP 94/61
[2020-05-11] MEDS: PRAMIPEXOLE 0.25 MG TABLET. PO SCH (20:07)
[2020-05-11 23:00] VITALS: BP 125/70
[2020-05-12 04:01] VITALS: BP 120/62
[2020-05-12 07:00] VITALS: BP 122/71
[2020-05-12] MEDS: ATORVASTATIN CALCIUM 20 MG TABLET PO SCH (08:25)
[2020-05-12] MEDS: PANTOPRAZOLE 40 MG TABLET.DR. PO SCH (08:25)
[2020-05-12] MEDS: CITALOPRAM 10 MG TABLET. PO SCH (08:25)
[2020-05-12] MEDS: buPROPion XL 150 MG TAB.ER.24H. PO SCH (08:26)
--- NOTE | 2020-05-12 10:44 | NUR ---
TEE following. Discussed with EDUARDO HANCOCK result came back negative late yesterday. Hernan with PAT coming back to see pt today. TEE will continue to follow. Addendum: 05/12/20 at 1353 by CHRISTOFER OLIVEIRA TEE faxed referral to [facility] after updated labs came back. Awaiting acceptance decision. Addendum: 05/12/20 at 1520 by CHRISTOFER OLIVEIRA TEE re-faxed referral to [facility] as they advised after 30 minutes they had not received it. TEE had to attempt the fax on 3 different fax machines and referral got jammed twice. Referral has now been faxed for the second time. RN notified. Addendum: 05/12/20 at 1639 by CHRISTOFER CARVER [address] [facility] declined to take pt due to no beds. TEE spoke with Dr. Jalloh - he is fine for pt to go home as [facility]OB had cleared pt to discharge home during PAT eval. Pt completed a safety plan with Hernan. Dr. Negron advised to call Dr. Jalloh to verify okay to discharge. RN notified.
[2020-05-12 11:00] VITALS: BP 134/90
--- NOTE | 2020-05-12 12:55 | PDOC ---
[employer] PROGRESS NOTE Date of Service DOS: DATE: 05/12/20 TIME: 12:53 Chief Complaint Chief Complaint Intentional overdose History of Present Illness History of Present Illness Patient evaluated at bedside. She states she is no longer suicidal, and is refusing inpatient psychiatric treatment. She is amenable to voluntary treatment at [facility]. Discussed with RN. Vitals/I&O Vitals/I&O: Vital Signs Date Time Temp Pulse Resp B/P (MAP) Pulse Ox O2 Delivery O2 Flow Rate FiO2 05/12/20 11:00 98.2 93 18 134/90 (105) 97 98.2 05/12/20 07:27 Room Air I & O 05/11/20 05/11/20 05/12/20 15:00 23:00 07:00 Intake Total 575 ml 500 ml 300 ml Balance 575 ml 500 ml 300 ml Physical Exam General: Alert Heart: Regular rate Lungs: Clear Abdomen: Soft, No tenderness Extremities: No clubbing, No cyanosis Skin: No rashes, No significant lesion Assessment and Plan Assessmemt and Plan Problems Medical Problems: (1) Hypokalemia Status: Acute (2) Overdose Status: Acute (3) Suicide attempt by drug ingestion Status: Acute Comment Review of Relevant I have reviewed the following items clifford (where applicable) has been applied. Justifications for Admission Other Justification NGOC IVEY MD May 12, 2020 12:55
[2020-05-12 13:06] LABS: BASO # 0.1 x10^3/uL (0.0-0.2); BASO % 1 % (0-3); EOS # 0.3 x10^3/uL (0.0-0.7); EOS % 5 % (0-3); HEMATOCRIT 41.2 % (36.0-47.0); HEMOGLOBIN 13.9 g/dL (12.0-15.5); LYMPH # 1.8 x10^3/uL (1.0-4.8); LYMPH % 25 % (24-48); MEAN CORPUSCULAR HEMOGLOBIN 30 pg (25-35); MEAN CORPUSCULAR HGB CONC 34 g/dL (31-37); MEAN CORPUSCULAR VOLUME 89 fL (79-100); MONO # 0.6 x10^3/uL (0.0-1.1); MONO % 9 % (0-9); NEUT # 4.3 x10^3/uL (1.8-7.7); NEUT % 61 % (31-73); PLATELET COUNT 283 x10^3/uL (140-400); RED BLOOD COUNT 4.61 x10^6/uL (3.50-5.40); RED CELL DISTRIBUTION WIDTH 13.7 % (11.5-14.5); WHITE BLOOD COUNT 7.1 x10^3/uL (4.0-11.0)
[2020-05-12 13:14] LABS: CALCIUM 8.9 mg/dL (8.5-10.1); CREATININE 1.1 mg/dL (0.6-1.0); GFR 49.7; POTASSIUM 3.3 mmol/L (3.5-5.1)
[2020-05-12] MEDS ORDERED: BUPR300T92 PO (13:34)
[2020-05-12] MEDS ORDERED: CITA20TA6 PO (13:34)
[2020-05-12 15:00] VITALS: BP 127/74
--- NOTE | 2020-05-12 16:32 | PDOC3 ---
Discharge Summary Visit Information Date of Admission: May 10, 2020 Date of Discharge: May 12, 2020 Final Diagnosis Problems Medical Problems: (1) Hypokalemia Status: Acute (2) Overdose Status: Acute (3) Suicide attempt by drug ingestion Status: Acute Brief Hospital Course Allergies Allergies Coded Allergies Type Severity Reaction Last Updated Verified diphenhydramine Allergy Severe SOB 12/13/17 Yes Vital Signs Vital Signs Date Time Temp Pulse Resp B/P (MAP) Pulse Ox O2 Delivery O2 Flow Rate FiO2 05/12/20 15:00 98.1 74 18 127/74 (91) 97 98.1 05/12/20 07:27 Room Air Lab Results Laboratory Tests Test 05/12/20 12:47 White Blood Count 7.1 x10^3/uL (4.0-11.0) Red Blood Count 4.61 x10^6/uL (3.50-5.40) Hemoglobin 13.9 g/dL (12.0-15.5) Hematocrit 41.2 % (36.0-47.0) Mean Corpuscular Volume 89 fL (79-100) Mean Corpuscular Hemoglobin 30 pg (25-35) Mean Corpuscular Hemoglobin Concent 34 g/dL (31-37) Red Cell Distribution Width 13.7 % (11.5-14.5) Platelet Count 283 x10^3/uL (140-400) Neutrophils (%) (Auto) 61 % (31-73) Lymphocytes (%) (Auto) 25 % (24-48) Monocytes (%) (Auto) 9 % (0-9) Eosinophils (%) (Auto) 5 % (0-3) Basophils (%) (Auto) 1 % (0-3) Neutrophils # (Auto) 4.3 x10^3/uL (1.8-7.7) Lymphocytes # (Auto) 1.8 x10^3/uL (1.0-4.8) Monocytes # (Auto) 0.6 x10^3/uL (0.0-1.1) Eosinophils # (Auto) 0.3 x10^3/uL (0.0-0.7) Basophils # (Auto) 0.1 x10^3/uL (0.0-0.2) Sodium Level 137 mmol/L (136-145) Potassium Level 3.3 mmol/L (3.5-5.1) Chloride Level 100 mmol/L (98-107) Carbon Dioxide Level 25 mmol/L (21-32) Anion Gap 12 (6-14) Blood Urea Nitrogen 9 mg/dL (7-20) Creatinine 1.1 mg/dL (0.6-1.0) Estimated GFR (Cockcroft-Gault) 49.7 Glucose Level 112 mg/dL (70-99) Calcium Level 8.9 mg/dL (8.5-10.1) Laboratory Tests Test 05/12/20 12:47 White Blood Count 7.1 x10^3/uL (4.0-11.0) Red Blood Count 4.61 x10^6/uL (3.50-5.40) Hemoglobin 13.9 g/dL (12.0-15.5) Hematocrit 41.2 % (36.0-47.0) Mean Corpuscular Volume 89 fL (79-100) Mean Corpuscular Hemoglobin 30 pg (25-35) Mean Corpuscular Hemoglobin Concent 34 g/dL (31-37) Red Cell Distribution Width 13.7 % (11.5-14.5) Platelet Count 283 x10^3/uL (140-400) Neutrophils (%) (Auto) 61 % (31-73) Lymphocytes (%) (Auto) 25 % (24-48) Monocytes (%) (Auto) 9 % (0-9) Eosinophils (%) (Auto) 5 % (0-3) Basophils (%) (Auto) 1 % (0-3) Neutrophils # (Auto) 4.3 x10^3/uL (1.8-7.7) Lymphocytes # (Auto) 1.8 x10^3/uL (1.0-4.8) Monocytes # (Auto) 0.6 x10^3/uL (0.0-1.1) Eosinophils # (Auto) 0.3 x10^3/uL (0.0-0.7) Basophils # (Auto) 0.1 x10^3/uL (0.0-0.2) Sodium Level 137 mmol/L (136-145) Potassium Level 3.3 mmol/L (3.5-5.1) Chloride Level 100 mmol/L (98-107) Carbon Dioxide Level 25 mmol/L (21-32) Anion Gap 12 (6-14) Blood Urea Nitrogen 9 mg/dL (7-20) Creatinine 1.1 mg/dL (0.6-1.0) Estimated GFR (Cockcroft-Gault) 49.7 Glucose Level 112 mg/dL (70-99) Calcium Level 8.9 mg/dL (8.5-10.1) Brief Hospital Course Ms. Jha is a 65 old female who presented with suicidal ideation. She was evaluated by psychiatry. Patient denied any further suicidal ideation for 72 hours throughout the duration of her stay. She did not meet inpatient criteria for psychiatric treatment, however safety plan was discussed with patient and family. Discharge Information Condition at Discharge: Stable Disposition/Orders: D/C to Home Scheduled Amlodipine Besylate (Amlodipine Besylate) 10 Mg Tablet, 10 MG PO DAILY, (Reported) Entered as Reported by: SHEELA LEON on 04/09/141656 Last Action: HELD on 05/10/20833 by NGOC IVEY MD Atorvastatin Calcium (Atorvastatin Calcium) 20 Mg Tablet, 20 MG PO DAILY for FOR CHOLESTEROL, #30 Ref 0 (Reported) Entered as Reported by: SHEELA LEON on 04/09/141656 Last Action: Continued on 05/10/20833 by NGOC IVEY MD Bupropion Hcl (Bupropion Xl) 300 Mg Tab.er.24h, 300 MG PO DAILY for Depression, #30 Ref 2 Prescribed by: NGOC IVEY MD on 05/12/20 1334 Citalopram Hydrobromide (Citalopram Hbr) 20 Mg Tablet, 30 MG PO DAILY for Depression, #30 Ref 2 Prescribed by: NGOC IVEY MD on 05/12/20 1334 Hydrochlorothiazide (Hydrochlorothiazide Tablet) 12.5 Mg Tablet, 12.5 MG PO DAILY for DIURETIC, Ref 0 (Reported) Entered as Reported by: SHEELA LEON on 04/09/141656 Last Action: HELD on 05/10/20833 by NGOC IVEY MD Pantoprazole Sodium (Pantoprazole Sodium ) 40 Mg Tablet.dr, 40 MG PO DAILY, (Reported) Entered as Reported by: SHEELA LEON on 04/09/141656 Last Action: Continued on 05/10/20833 by NGOC IVEY MD Pramipexole Di-Hcl (Mirapex) 0.25 Mg Tablet, 0.5 MG PO HS, (Reported) Entered as Reported by: SHEELA LEON on 04/09/141656 Last Action: Continued on 05/10/20833 by NGOC IVEY MD Scheduled PRN Alprazolam (Alprazolam) 0.5 Mg Tablet, 0.5 MG PO PRN Q6HRS PRN for ANXIETY / AGITATION, Ref 0 (Reported) Entered as Reported by: SHEELA LEON on 04/09/141656 Last Action: HELD on 05/10/20833 by NGOC IVEY MD Meclizine Hcl (Meclizine Hcl) 25 Mg Tablet, 1 TAB PO TID PRN for dizziness, #30 Prescribed by: FLETCHER PEOPLES D.O. on 03/21/20 124 Last Action: Converted on 05/10/20833 by NGOC IVEY MD Justicifation of Admission Dx: Justifications for Admission: Justification of Admission Dx: Yes NGOC IVEY MD May 12, 2020 16:32
--- NOTE | 2020-05-12 19:07 | NUR ---
Pt. discharged to home with friend. All paperwork and belongings in hand. Denies any questions.
== END 2020-05-12 19:07 | disposition home or self-care (01) ==
LOC: ER 20:38 → 5 NORTH 05-10 04:17 → INTOOBSV 05-10 04:17
PROVIDERS: ADMIT Internal Medicine; ATTEND Internal Medicine
DX: T43.592A Poisoning by other antipsychotics and neuroleptics, intentional self-harm, initial encounter (principal); Z20.828 Contact with and (suspected) exposure to other viral communicable diseases; E87.6 Hypokalemia; F41.9 Anxiety disorder, unspecified; J44.9 Chronic obstructive pulmonary disease, unspecified; F33.2 Major depressive disorder, recurrent severe without psychotic features; E78.00 Pure hypercholesterolemia, unspecified; I10 Essential (primary) hypertension; K21.9 Gastro-esophageal reflux disease without esophagitis; F17.200 Nicotine dependence, unspecified, uncomplicated; Z90.710 Acquired absence of both cervix and uterus; Y92.89 Other specified places as the place of occurrence of the external cause
CPT/HCPCS: 36415; 80048; 80053; 80307; 80329; 83735; 84484; 85025; 85610; 85730; 93005; 96360; 99291; G0378; G0480; J7030; U0003; G0379

== ENCOUNTER 2020-11-07 13:33 | Emergency (ER) | payer BC ==
[~2020-11-07] VITALS: Ht 157.5 cm; Wt 84.0 kg
[~2020-11-07 13:33] MED LIST changes: +AMLO-187 PO; -AMLO10TA8 PO
[2020-11-07 14:03] LABS: BASO # 0.1 x10^3/uL (0.0-0.2); BASO % 1 % (0-3); EOS # 0.4 x10^3/uL (0.0-0.7); EOS % 5 % (0-3); HEMATOCRIT 40.7 % (36.0-47.0); HEMOGLOBIN 13.7 g/dL (12.0-15.5); LYMPH # 1.7 x10^3/uL (1.0-4.8); LYMPH % 21 % (24-48); MEAN CORPUSCULAR HEMOGLOBIN 30 pg (25-35); MEAN CORPUSCULAR HGB CONC 34 g/dL (31-37); MEAN CORPUSCULAR VOLUME 88 fL (79-100); MONO # 0.7 x10^3/uL (0.0-1.1); MONO % 9 % (0-9); NEUT # 5.1 x10^3/uL (1.8-7.7); NEUT % 64 % (31-73); PLATELET COUNT 265 x10^3/uL (140-400); RED BLOOD COUNT 4.64 x10^6/uL (3.50-5.40); RED CELL DISTRIBUTION WIDTH 13.8 % (11.5-14.5)
[2020-11-07 14:13] LABS: CALCIUM 8.6 mg/dL (8.5-10.1); GFR 55.5; POTASSIUM 3.6 mmol/L (3.5-5.1)
[2020-11-07 14:19] LABS: ALBUMIN 3.5 g/dL (3.4-5.0); ALBUMIN/GLOBULIN RATIO 0.9 (1.0-1.7); TOTAL BILIRUBIN 0.5 mg/dL (0.2-1.0); TOTAL PROTEIN 7.4 g/dL (6.4-8.2)
[2020-11-07] MEDS ORDERED: IOHEXOL 300 MG/ML 100ML VIAL. IV ONE (14:30)
[2020-11-07] MEDS ORDERED: CONTRAST GIVEN. MC PRN (14:45)
--- NOTE | 2020-11-07 15:00 | RAD ---
EXAM: Abdomen and pelvis CT with intravenous contrast. HISTORY: Right lower quadrant pain. TECHNIQUE: Computed tomographic images of the abdomen and pelvis were obtained following the administ ration of intravenous contrast. Multiplanar reformatting was performed. *One or more of the following individualized dose reduction techniques were utilized for this examina tion: 1. Automated exposure control. 2. Adjustment of the mA and/or kV according to patient size. 3. Use of iterative reconstruction technique. COMPARISON: 05/02/2020. FINDINGS: Evaluation of the lower thorax demonstrates linear atelectasis or scarring within the right middle lobe. There is left posterior dependent atelectasis. The heart is normal in size. There is a small hiatal hernia. There is a 7 mm hepatic cyst. The gallbladder, pancreas, spleen and adrenal glan ds are unremarkable. There is a 2 mm nonobstructing stone within the inferior left kidney. There are adjacent punctate sto niles. There may be a punctate nonobstructing stone within the mid zone of the right kidney. There is a 9 mm hypodense lesion within the lower pole of the left kidney and 3 mm hypodense lesion within the lower pole of the right kidney, both which are too small to characterize and likely cysts. There is no appendicitis. There is no bowel obstruction. There is distal colonic diverticulosis. The bladder is unremarkable. The uterus is absent. The aorta is normal in caliber. There is no lymphadeno shola. There is no suspicious osseous lesion. IMPRESSION: 1. Colonic diverticulosis. There is no convincing diverticulitis. 2. Left and possibly right nephrolithiasis. There is no obstructive uropathy. 3. Small hypodense lesions within both kidneys, too small to characterize and likely due to cysts. Th is may also be too small to characterize sonographically. CT follow-up can be performed to confirm be nignity if there are no additional prior studies to confirm stability. 4. Small hiatal hernia. Electronically signed by: Krystal Baker MD (11/07/2020 2:58 PM) [id number]
[2020-11-07 15:46] LABS: BILIRUBIN,URINE NEGATIVE (NEG); CLARITY,URINE CLEAR; COLOR,URINE YELLOW; NITRITE,URINE NEGATIVE (NEG); PROTEIN,URINE NEGATIVE (NEG-TRACE); UROBILINOGEN,URINE 0.2 mg/dL (0.2 mg/dL)
[2020-11-07 15:58] LABS: BACTERIA,URINE FEW /HPF (0-FEW); BARBITURATES NEG (NEG); BENZODIAZEPINES NEG (NEG); CANNABINOIDS NEG (NEG); COCAINE NEG (NEG); METHADONE NEG (NEG); OPIATES NEG (NEG); PHENCYCLIDINE NEG (NEG); RBC,URINE 0 /HPF (0-2)
[2020-11-07 16:03] LABS: AMPHETAMINE/METHAMPHETAMINE NEG (NEG)
[2020-11-07 16:36] VITALS: BP 126/73
--- NOTE | 2020-11-07 16:40 | PHYS DOC ---
Past Medical History Past Medical History: Anxiety, Arthritis, COPD, Depression, GERD, High Cholesterol, Hypertension Past Surgical History: Hysterectomy, Other Additional Past Surgical Histo: Pituitary removal Smoking Status: Current Every Day Smoker Alcohol Use: None Drug Use: Marijuana General Adult EDM: Chief Complaint: ABDOMINAL PAIN HPI: HPI: Patient is a 65 year old female with history of hypertension, anxiety, depression, high cholesterol, who presents to the ED today with complaints of a sharp 8 out of 10 right lower quadrant abdominal pain that is chronic in nature but she states got worse today when she lifted 2 gallons of water at [employer]. Patient states this pain is usually worse after lifting heavy items specifically when she is done shopping for her groceries. She states she has been seen by the PCP and was told this pain is muscle skeletal. Denies any fever, nausea, vomiting. Denies any urgency, frequency or dysuria. She states the pain is worse on the groin on the right side when she tries to move. Review of Systems: Review of Systems: Constitutional: Denies fever or chills. [] Eyes: Denies change in visual acuity. [] HENT: Denies nasal congestion or sore throat. [] Respiratory: Denies cough or shortness of breath. [] Cardiovascular: Denies chest pain or edema. [] GI: Reports right lower quadrant abdominal pain, denies nausea, vomiting, bloody stools or diarrhea. [] : Denies dysuria. [] Musculoskeletal: Denies back pain or joint pain. [] Integument: Denies rash. [] Neurologic: Denies headache, focal weakness or sensory changes. [] Psychiatric: Denies depression or anxiety. [] Heart Score: C/O Chest Pain: N/A Risk Factors: Risk Factors: DM, Current or recent (<one month) smoker, HTN, HLP, family history of CAD, obesity. Risk Scores: Score 0 - 3: 2.5% MACE over next 6 weeks - Discharge Home Score 4 - 6: 20.3% MACE over next 6 weeks - Admit for Clinical Observation Score 7 - 10: 72.7% MACE over next 6 weeks - Early Invasive Strategies Current Medications: Current Medications Medications (Trade) Dose Ordered Sig/Kyle Start Time Stop Time Status Last Admin Dose Admin Info (CONTRAST GIVEN -- Rx MONITORING) 1 each PRN DAILY PRN 11/07/20 14:45 11/09/20 14:44 Iohexol (Omnipaque 300 Mg/ml) 60 ml 1X ONCE 11/07/20 14:30 11/07/20 14:31 DC 11/07/20 14:38 60 ML Allergies: Allergies: Allergies Coded Allergies Type Severity Reaction Last Updated Verified diphenhydramine Allergy Severe SOB 12/13/17 Yes Physical Exam: PE: Constitutional: Well developed, well nourished, no acute distress, non-toxic appearance. [] HENT: Normocephalic, atraumatic, bilateral external ears normal, oropharynx moist, no oral exudates, nose normal. [] Eyes: PERRLA, EOMI, conjunctiva normal, no discharge. [] Neck: Normal range of motion, no tenderness, supple, no stridor. [] Cardiovascular:Heart rate regular rhythm, no murmur [] Lungs & Thorax: Bilateral breath sounds clear to auscultation [] Abdomen: Bowel sounds normal, soft, no tenderness, no masses, no pulsatile masses. Tenderness on palpation of the right groin. Skin: Warm, dry, no erythema, no rash. [] Back: No tenderness, no CVA tenderness. [] Extremities: No tenderness, no cyanosis, no clubbing, ROM intact, no edema. [] Neurologic: Alert and oriented X 3, normal motor function, normal sensory function, no focal deficits noted. [] Psychologic: Affect normal, judgement normal, mood normal. [] Current Patient Data: Labs: Laboratory Tests Test 11/07/20 13:50 11/07/20 15:30 White Blood Count 8.0 x10^3/uL (4.0-11.0) Red Blood Count 4.64 x10^6/uL (3.50-5.40) Hemoglobin 13.7 g/dL (12.0-15.5) Hematocrit 40.7 % (36.0-47.0) Mean Corpuscular Volume 88 fL (79-100) Mean Corpuscular Hemoglobin 30 pg (25-35) Mean Corpuscular Hemoglobin Concent 34 g/dL (31-37) Red Cell Distribution Width 13.8 % (11.5-14.5) Platelet Count 265 x10^3/uL (140-400) Neutrophils (%) (Auto) 64 % (31-73) Lymphocytes (%) (Auto) 21 % (24-48) L Monocytes (%) (Auto) 9 % (0-9) Eosinophils (%) (Auto) 5 % (0-3) H Basophils (%) (Auto) 1 % (0-3) Neutrophils # (Auto) 5.1 x10^3/uL (1.8-7.7) Lymphocytes # (Auto) 1.7 x10^3/uL (1.0-4.8) Monocytes # (Auto) 0.7 x10^3/uL (0.0-1.1) Eosinophils # (Auto) 0.4 x10^3/uL (0.0-0.7) Basophils # (Auto) 0.1 x10^3/uL (0.0-0.2) Sodium Level 139 mmol/L (136-145) Potassium Level 3.6 mmol/L (3.5-5.1) Chloride Level 104 mmol/L (98-107) Carbon Dioxide Level 25 mmol/L (21-32) Anion Gap 10 (6-14) Blood Urea Nitrogen 14 mg/dL (7-20) Creatinine 1.0 mg/dL (0.6-1.0) Estimated GFR (Cockcroft-Gault) 55.5 BUN/Creatinine Ratio 14 (6-20) Glucose Level 92 mg/dL (70-99) Calcium Level 8.6 mg/dL (8.5-10.1) Total Bilirubin 0.5 mg/dL (0.2-1.0) Aspartate Amino Transferase (AST) 18 U/L (15-37) Alanine Aminotransferase (ALT) 25 U/L (14-59) Alkaline Phosphatase 124 U/L (46-116) H Total Protein 7.4 g/dL (6.4-8.2) Albumin 3.5 g/dL (3.4-5.0) Albumin/Globulin Ratio 0.9 (1.0-1.7) L Lipase 147 U/L (73-393) Ethyl Alcohol Level < 10 mg/dL (0-10) Urine Collection Type Unknown Urine Color Yellow Urine Clarity Clear Urine pH 7.0 (<5.0-8.0) Urine Specific Rigby 1.020 (1.000-1.030) Urine Protein Negative mg/dL (NEG-TRACE) Urine Glucose (UA) Negative mg/dL (NEG) Urine Ketones (Stick) Negative mg/dL (NEG) Urine Blood Negative (NEG) Urine Nitrite Negative (NEG) Urine Bilirubin Negative (NEG) Urine Urobilinogen Dipstick 0.2 mg/dL (0.2 mg/dL) Urine Leukocyte Esterase Trace (NEG) Urine RBC 0 /HPF (0-2) Urine WBC 1-4 /HPF (0-4) Urine Squamous Epithelial Cells Few /LPF Urine Bacteria Few /HPF (0-FEW) Urine Opiates Screen Neg (NEG) Urine Methadone Screen Neg (NEG) Urine Barbiturates Neg (NEG) Urine Phencyclidine Screen Neg (NEG) Urine Amphetamine/Methamphetamine Neg (NEG) Urine Benzodiazepines Screen Neg (NEG) Urine Cocaine Screen Neg (NEG) Urine Cannabinoids Screen Neg (NEG) Urine Ethyl Alcohol Neg (NEG) Laboratory Tests 11/07/20 13:50 Laboratory Tests 11/07/20 13:50 Vital Signs: Vital Signs Date Time Temp Pulse Resp B/P (MAP) Pulse Ox O2 Delivery O2 Flow Rate FiO2 11/07/20 15:36 76 17 139/89 (106) 100 Room Air 11/07/20 13:35 98.8 98.8 EKG: EKG: [] Radiology/Procedures: Radiology/Procedures: []PROCEDURE: CT ABD PELV W/ IV CONTRST ONLY EXAM: Abdomen and pelvis CT with intravenous contrast. HISTORY: Right lower quadrant pain. TECHNIQUE: Computed tomographic images of the abdomen and pelvis were obtained following the administration of intravenous contrast. Multiplanar reformatting was performed. *One or more of the following individualized dose reduction techniques were utilized for this examination: 1. Automated exposure control. 2. Adjustment of the mA and/or kV according to patient size. 3. Use of iterative reconstruction technique. COMPARISON: 05/02/2020. FINDINGS: Evaluation of the lower thorax demonstrates linear atelectasis or scarring within the right middle lobe. There is left posterior dependent atelectasis. The heart is normal in size. There is a small hiatal hernia. There is a 7 mm hepatic cyst. The gallbladder, pancreas, spleen and adrenal glands are unremarkable. There is a 2 mm nonobstructing stone within the inferior left kidney. There are adjacent punctate stones. There may be a punctate nonobstructing stone within the mid zone of the right kidney. There is a 9 mm hypodense lesion within the lower pole of the left kidney and 3 mm hypodense lesion within the lower pole of the right kidney, both which are too small to characterize and likely cysts. There is no appendicitis. There is no bowel obstruction. There is distal colonic diverticulosis. The bladder is unremarkable. The uterus is absent. The aorta is normal in caliber. There is no lymphadenopathy. There is no suspicious osseous lesion. IMPRESSION: 1. Colonic diverticulosis. There is no convincing diverticulitis. 2. Left and possibly right nephrolithiasis. There is no obstructive uropathy. 3. Small hypodense lesions within both kidneys, too small to characterize and likely due to cysts. This may also be too small to characterize sonographically. CT follow-up can be performed to confirm benignity if there are no additional prior studies to confirm stability. 4. Small hiatal hernia. Electronically signed by: Krystal Baker MD (11/07/2020 2:58 PM) [id number] DICTATED and SIGNED BY: KRYSTAL BAKER MD DATE: 11/07/20 [id number] 0 Course & Med Decision Making: Course & Med Decision Making Pertinent Labs and Imaging studies reviewed. (See chart for details) This is a 65-year-old female patient presented to the ED today with the right lower quadrant abdominal pain that she states is chronic and got worse today after she lifted 2 gallons of water at [employer]. CBC, CMP, UA-no acute findings. CT of the abdomen and pelvic was noted for diverticulosis, bilateral nephrolithiasis with no obstruction, cysts in bilateral kidneys, and hiatal hernia. Patient was discharged to home. Follow-up with PCP Minor Disclaimer: Minor Disclaimer: This electronic medical record was generated, in whole or in part, using a voice recognition dictation system. Departure Departure Impression: Primary Impression: Chronic right lower quadrant pain Additional Impression: Musculoskeletal pain Disposition: 01 DC HOME SELF CARE/HOMELESS Condition: STABLE Referrals: UNKNOWN PCP NAME (PCP) SEBASTIEN BRADY MD follow up in 1 week Patient Instructions: Abdominal Pain (Nonspecific), Musculoskeletal Pain Additional Instructions: You were evaluated in the emergency room for right lower quadrant abdominal pain. Your work-up was negative for any acute findings. You have some cysts in your kidneys. You need to be follow up with your primary care doctor. Avoid lifting anything greater than 0.5 gallon. MUTUNGA,TARAS CLAIMS REPRESENTATIVE Nov 07, 2020 16:40
== END 2020-11-07 16:45 | disposition home or self-care (01) ==
LOC: ER 13:33
DX: G89.29 Other chronic pain (principal); R10.31 Right lower quadrant pain; M79.18 Myalgia, other site; F41.9 Anxiety disorder, unspecified; M19.90 Unspecified osteoarthritis, unspecified site; J44.9 Chronic obstructive pulmonary disease, unspecified; K21.9 Gastro-esophageal reflux disease without esophagitis; F32.9 Major depressive disorder, single episode, unspecified; E78.00 Pure hypercholesterolemia, unspecified; I10 Essential (primary) hypertension; F17.200 Nicotine dependence, unspecified, uncomplicated; F12.90 Cannabis use, unspecified, uncomplicated; Z90.710 Acquired absence of both cervix and uterus; Z98.890 Other specified postprocedural states; Z88.8 Allergy status to other drugs, medicaments and biological substances
CPT/HCPCS: 36415; 74177; 80053; 80307; 81001; 83690; 85025; 87086; 99285; G0480; Q9967